=== PATIENT | male | born 1975 | race Hispanic/Latino ===

== ENCOUNTER 2017-10-27 23:43 | Observation (INO) | payer MEDICAID ==
[2017-10-27] MEDS ORDERED: PANTOPRAZOLE 40 MG 10ML VIAL IV STA (23:56)
[2017-10-28 00:10] LABS: BASOPHILS # (AUTO) 0.1 (0.0-0.1); EOSINOPHILS # (AUTO) 0.6 (0.0-0.4); EOSINOPHILS % 9.6 % (0.0-6.0); HEMATOCRIT 29.9 % (38.2-49.6); HEMOGLOBIN 9.4 g/dL (14.0-18.0); LYMPHOCYTES % 16.4 % (18.0-39.1); MEAN CORPUSCULAR HEMOGLOBIN 30.4 pg (28-32); MEAN CORPUSCULAR HGB CONC 31.4 g/dL (31-35); MEAN CORPUSCULAR VOLUME 96.8 fL (81-99); MONOCYTES # (AUTO) 0.4 (0.2-0.8); MONOCYTES % 7.1 % (4.4-11.3); NEUTROPHILS % 65.7 % (38.7-80.0); PLATELET COUNT 226 x10e3/uL (140-360); RED BLOOD COUNT 3.09 x10e6/uL (4.3-5.7); RED CELL DISTRIBUTION WIDTH 14.9 % (11.7-14.4)
[2017-10-28 00:20] LABS: AMYLASE 45 U/L (25-125); LIPASE 6 U/L (8-78)
[2017-10-28 00:25] LABS: ALBUMIN 2.7 g/dL (3.5-5.0); ALBUMIN/GLOBULIN RATIO 0.4 (0.8-2.0); ANION GAP 17.3 mmol/L (8-16); CALCIUM 8.4 mg/dL (8.4-10.2); CREATININE, SERUM 3.66 mg/dL (0.72-1.25); POTASSIUM 5.3 mmol/L (3.5-5.1)
[2017-10-28] MEDS ORDERED: SODIUM BICARBONATE 8.4% INJ 50 ML SYR IV STA (00:30)
[2017-10-28] MEDS ORDERED: INSULIN REGULAR, HUMAN 100 UNIT/1 ML 3ML VIAL IV ONE (00:30)
[2017-10-28] MEDS ORDERED: DEXTROSE 50% SYRINGE 50 ML IV STA (00:30)
[2017-10-28 00:31] LABS: TROPONIN I 0.04 ng/mL (0-0.300)
--- NOTE | 2017-10-28 02:13 | Diagnostic Imaging Report ---
EXAMINATION: CHEST SINGLE (PORTABLE) INDICATION: Shortness of breath COMPARISON: None FINDINGS: TUBES and LINES: Right IJ dual-lumen dialysis catheter with tip overlying the atrial caval junction LUNGS: Lungs are not well inflated. There are bibasilar atelectasis. There is perihilar interstitial opacities, consistent with interstitial edema. PLEURA: Small bilateral pleural effusions HEART AND MEDIASTINUM: Cardiac size is moderately enlarged. BONES AND SOFT TISSUES: No acute osseous lesion. Soft tissues are unremarkable. UPPER ABDOMEN: No free air under the diaphragm. IMPRESSION: 1. Findings are consistent with fluid overload and small bilateral pleural effusions. 2. Enlargement of the cardiac silhouette may be related to cardiomegaly or pericardial effusion. Signed by: Dr. Sd Snell M.D. on 10/28/2017 2:09 AM
[2017-10-28] MEDS ORDERED: HYDRALAZINE HCL 20 MG/ML VIAL IV PRN (03:00)
[2017-10-28] MEDS ORDERED: DEXTROSE 50% SYRINGE 50 ML IV PRN (03:00)
[2017-10-28] MEDS: MORPHINE SULFATE 2 MG/ML SYR IV PRN ×4 (03:22→20:59)
[2017-10-28] MEDS: ONDANSETRON HCL INJ 2 MG/ML VIAL IV PRN ×3 (03:22→12:50)
[2017-10-28 04:00] VITALS: BP 146/88
[2017-10-28] MEDS: INSULIN REGULAR, HUMAN 100 UNIT/1 ML 3ML VIAL SQ SCH ×4 (07:30→20:32)
[2017-10-28 08:26] VITALS: BP 146/88
[2017-10-28] MEDS: PANTOPRAZOLE 40 MG 10ML VIAL IV SCH (08:31)
[2017-10-28] MEDS ORDERED: DIATRIZOATE MEGL/DIATRIZOA SOD 30 ML BTL PO ONE (09:53)
--- NOTE | 2017-10-28 10:14 | History and Physical ---
CHIEF COMPLAINT: Shortness of breath and abdominal pain. HPI: Mr. Hernandez is a 42-year-old male presented to the emergency room with worsening shortness of breath and abdominal pain that started yesterday. He was at [facility] up until yesterday. Patient is a newly diagnosed end-stage renal disease, and since he does not have insurance, they were having a difficult time finding him a chair for dialysis. They found him a chair for dialysis. However, he started having abdominal pain so he decided to come to the emergency room. He has a history of diabetes, bilateral above-knee amputation and has sacral decubitus ulcers. He denies any chest pain, nausea, vomiting, diarrhea, or focal weakness. REVIEW OF SYSTEMS GENERAL: Denies any fever or chills. HEENT: Denies any head trauma or head injury. ENT: Denies any earache, nosebleeds, or throat pain. CV: Denies any chest pain. RESPIRATORY: Patient has shortness of breath. GI: Nausea, vomiting. The rest of the review of systems are negative except as in HPI. PAST MEDICAL HISTORY: End-stage renal disease, diabetes, below knee amputation status. FAMILY AND SOCIAL HISTORY: Does not smoke. Does not drink. Lives with his daughter. PHYSICAL EXAMINATION VITAL SIGNS: Temperature 97.3, pulse 63, blood pressure 146/88, respiratory rate 18, O2 sat 99% on room air. SKIN: Warm and dry. GENERAL: Young male with abdominal distress. He is awake, alert and following commands. HEENT: Head is atraumatic and normocephalic. Pupils are reactive. NECK: Supple. No JVD. He has a decubitus ulcer on the head as well. CHEST: Crackles bilaterally. HEART: S1 and S2 audible. ABDOMEN: Soft, nontender and nondistended. Bowel sounds are audible. EXTREMITIES: Bilateral AKA. Chest x-ray showing poor respiratory effort and bilateral congestion. LABS: White count of 6000, hemoglobin 9.4 and platelets 226,000. Chemistry: Sodium 131, potassium 5.3, chloride 94, BUN 28, creatinine 3.66, alk phos 375. AST and ALT is normal. BNP 3381. ASSESSMENT AND PLAN: Mr. Hernandez is a 42-year-old male with end-stage renal disease, newly diagnosed, history of diabetes, multiple decubitus ulcers, bilateral above-knee amputation. CURRENT PROBLEMS 1. Fluid overload. 2. Hyperkalemia. 3. End-stage renal disease. 4. Diabetes mellitus. 5. Bilateral above-knee amputation status. 6. Poor social support. 7. Decubitus ulcers. PLAN 1. Nephrology consult. Patient will need hemodialysis. 2. CT of the abdomen and pelvis. Patient is having abdominal pain. Etiology not very clear. 3. Increased CK-MB and BNP. Will follow cardiac enzymes. Consider consulting cardiology. Job#: [id number] [place]
[2017-10-28 12:30] VITALS: BP 164/97
--- NOTE | 2017-10-28 12:48 | Diagnostic Imaging Report ---
EXAM: CT Abdomen and Pelvis WITHOUT contrast INDICATION: Abdominal pain. End-stage renal disease and dialysis. COMPARISON: None. TECHNIQUE: Abdomen and pelvis were scanned utilizing a multidetector helical scanner from the lung base to the pubic symphysis without administration of IV contrast. Absence of intravenous contrast decreases sensitivity for detection of focal lesions and vascular pathology. Coronal and sagittal reformations were obtained. Routine protocol was performed. IV CONTRAST: None. ORAL CONTRAST: Gastrografin and water mixture. RADIATION DOSE: Total DLP: 754.17 mGy*cm Estimated effective dose: (DLP x 0.015 x size factor) mSv COMPLICATIONS: None FINDINGS: LINES and TUBES: Distal portion of the right venous catheter is located in the high right atrium. LOWER THORAX: The heart is moderate to markedly enlarged. Multivessel coronary artery calcifications. Small pericardial effusion. Complex right pleural effusion with either pleural thickening or layering the biliary as demonstrated on axial image 11 series 2. Small left pleural effusion. Bilateral lower lobe atelectasis. Mild prominence of the pulmonary vasculature. HEPATOBILIARY: The liver is enlarged measuring 19.8 cm in length. No focal hepatic lesions. No biliary ductal dilation. GALLBLADDER: No radio-opaque stones or sludge. No wall thickening. SPLEEN: No splenomegaly. PANCREAS: No focal masses or ductal dilatation. ADRENALS: No adrenal nodules KIDNEYS/URETERS: No hydronephrosis. No cystic or solid mass lesions. No stones. GI TRACT: No abnormal distention, wall thickening, or evidence of bowel obstruction. Moderate volume of stool within the colon. Appendix is not identified. PELVIC ORGANS/BLADDER: Unremarkable. LYMPH NODES: No lymphadenopathy. VESSELS: Extensive atherosclerotic calcification of mesenteric vessels. Moderate calcification of the splenic artery and branches. Atherosclerotic calcifications of the aorta and iliac arteries without aneurysmal dilatation. PERITONEUM / RETROPERITONEUM: No free air or fluid. BONES: Unremarkable. SOFT TISSUES: Mild anasarca. Small fat-containing umbilical hernia, with mild hyperenhancement of the hernia sac. IMPRESSION: 1. Hepatomegaly. 2. Extensive atherosclerotic disease. Further evaluation of vasculature Limited lack of contrast. 3. Bilateral pleural effusions, complex on the right, associated with bilateral lower lobe compressive atelectasis. 4. Moderate to marked cardiomegaly and small pericardial effusion. Signed by: Dr. Raysa Earl M.D. on 10/28/2017 12:44 PM
[2017-10-28 15:39] VITALS: BP 159/84
--- NOTE | 2017-10-28 15:49 | Consultation ---
DATE OF CONSULTATION: October 28, 2017 NEPHROLOGY CONSULT REASON FOR THE CONSULT: End-stage renal disease. HISTORY OF PRESENT ILLNESS: This is a 42-year-old male who is very known to our service as we manage his dialysis. He has been on compression dialysis until this admission in [place] where we were able to hook him up at [facility] every Thursday//Thursday. He was just discharged from [place] yesterday, and he was supposed to go for dialysis tomorrow. He came complaining of some abdominal pain along with some nausea and decreased p.o. intake, the same complaint that happened at [place] for which extensive workup has been undergoing and the CAT scan was done already. The patient has history of previously bad CHF along with a pericardial effusion in the past status post pericardiocentesis. Today he is resting. He tolerated some diet, but he still has some nausea. We are consulted to manage dialysis on inpatient. He has very bad vascular disease with bilateral amputations above the knee and along with ischemic fingers, and he has diabetes and sacral decubitus ulcer. He is afebrile. REVIEW OF SYSTEMS: Negative otherwise. PAST MEDICAL HISTORY: As mentioned above. FAMILY HISTORY: Hypertension, diabetes. SOCIAL HISTORY: Denies smoking, alcohol or IV drug abuse. ALLERGIES: NEGATIVE PER RECORDS. VITAL SIGNS: For today blood pressure 164/97, heart rate 64, temperature 96.8. PHYSICAL EXAMINATION GENERAL APPEARANCE: No acute distress, awake, alert x3. HEAD, EARS, EYES, NECK: No lymphadenopathy. HEART: Regular rate and rhythm. LUNGS: Decreased breath sounds at the bases. ABDOMEN: Soft, nontender. EXTREMITIES: No edema. His white count is 6, hemoglobin is 9.4. His potassium yesterday was 5.3. Overnight his BNP 3381, CK-MB is 9.3, his troponin is 0.04. ASSESSMENT AND PLAN 1. End-stage renal disease. Patient has been on compression dialysis for a few years now. He is set up at [facility] every Thursday//Thursday for third shift. Educated the patient about compliance with outpatient dialysis rather than coming back to the hospital. This time we are going to dialyze short session today given potassium 5.3 and shortness of breath. However, he has to resume dialysis tomorrow. 2. Electrolytes. Low potassium diet and bath. 3. Anemia of chronic disease. Add Epogen if patient stays in the hospital. 4. Congestive heart failure and shortness of breath. Patient has history of pericardial effusion status post drainage, and now he has small pericardial effusion and he has some bilateral effusions. Challenge UF as tolerated. Dr. Martínez and Dr. Sharma are following from cardiac and pulmonary standpoint. Follow up their recommendations. 5. Diabetes. Monitor blood sugar. 6. Peripheral vascular disease with the second finger in the left hand ischemic and discoloration. He has above-knee amputation bilateral. Thank you for the consult. The patient basically is coming after being discharged by 1 day from another hospital with extensive workup for CAT scan of his abdomen given his nausea and along with abdominal pain that was investigated and ruled out for major diseases. He was able to tolerate the diet. I am going to dialyze the patient short session today, and then if he stays here we will dialyze again tomorrow and send him out on TTS schedule. Recommend get records from [place] rather than doing further workup and expose the patient for further imaging studies. Job#: [id number] [place]
[2017-10-28 19:00] VITALS: BP 161/89
[2017-10-28] MEDS ORDERED: HEPARIN SOD (PORCINE) 1000 UNIT/ML SDV IV PRN (19:30)
[2017-10-28] MEDS ORDERED: SODIUM CHLORIDE 0.9% 1000ML 2,000 ML IV PRN (19:30)
[2017-10-28] MEDS ORDERED: ALBUMIN HUMAN 12.5GM / 50ML IV PRN (19:30)
[2017-10-28] MEDS ORDERED: SODIUM CHLORIDE 0.9% 250ML 500 ML IV PRN (19:30)
[2017-10-29] VITALS: BP 192/88
[2017-10-29] MEDS: MORPHINE SULFATE 2 MG/ML SYR IV PRN ×3 (00:48→09:39)
[2017-10-29 04:00] VITALS: BP 161/87
[2017-10-29 07:25] LABS: BASOPHILS # (AUTO) 0.1 (0.0-0.1); BASOPHILS % 1.1 % (0.0-1.0); EOSINOPHILS # (AUTO) 0.7 (0.0-0.4); EOSINOPHILS % 11.3 % (0.0-6.0); HEMOGLOBIN 8.3 g/dL (14.0-18.0); LYMPHOCYTES % 16.6 % (18.0-39.1); MEAN CORPUSCULAR HEMOGLOBIN 30.9 pg (28-32); MEAN CORPUSCULAR HGB CONC 31.9 g/dL (31-35); MEAN CORPUSCULAR VOLUME 96.7 fL (81-99); MONOCYTES # (AUTO) 0.6 (0.2-0.8); MONOCYTES % 9.4 % (4.4-11.3); NEUTROPHILS # (AUTO) 3.8 (2.1-6.9); NEUTROPHILS % 61.3 % (38.7-80.0); PLATELET COUNT 208 x10e3/uL (140-360); RED BLOOD COUNT 2.69 x10e6/uL (4.3-5.7); RED CELL DISTRIBUTION WIDTH 15.2 % (11.7-14.4)
[2017-10-29] MEDS: INSULIN REGULAR, HUMAN 100 UNIT/1 ML 3ML VIAL SQ SCH ×3 (07:30→16:07)
[2017-10-29 07:50] LABS: ALBUMIN 2.4 g/dL (3.5-5.0); ALBUMIN/GLOBULIN RATIO 0.5 (0.8-2.0); CALCIUM 8.4 mg/dL (8.4-10.2); CREATININE, SERUM 3.08 mg/dL (0.72-1.25)
[2017-10-29 08:28] VITALS: BP 169/74
[2017-10-29] MEDS: PANTOPRAZOLE 40 MG 10ML VIAL IV SCH (09:39)
[2017-10-29] MEDS: ONDANSETRON HCL INJ 2 MG/ML VIAL IV PRN (09:39)
[2017-10-29] MEDS ORDERED: SOD POLYSTYRENE SULFONATE SUSP 15 GM/60 ML BTL PO STA (09:58)
--- NOTE | 2017-10-29 10:29 | Discharge Summary ---
FINAL DIAGNOSES 1. End-stage renal disease. 2. Bilateral upper knee amputation status. 3. Decubitus ulcers. 4. Hyperkalemia with fluid overload. Mr. Hernandez is a 42-year-old male who presented with fluid overload. Patient has been set up for hemodialysis as an outpatient. He was recently admitted at [facility]. During the hospital stay, nephrology was consulted. The patient underwent hemodialysis. He is doing much better now. Denying any complaints of chest pain, nausea, vomiting. CT of the abdomen was done, which was negative. Patient can be discharged home if okay with consultants. Discharge medication list reviewed. MANUEL HEART MD Job#: [id number] [place]
[2017-10-29 12:39] VITALS: BP 164/99
[2017-10-29 16:13] VITALS: BP 163/90
== END 2017-10-29 17:41 | disposition home or self-care (01) ==
LOC: ER 23:43 → IMCU 10-28 03:22
PROVIDERS: ADMIT Internal Medicine; ATTEND Internal Medicine
DX: E11.22 Type 2 diabetes mellitus with diabetic chronic kidney disease (principal); I13.2 Hypertensive heart and chronic kidney disease with heart failure and with stage 5 chronic kidney disease, or end stage renal disease; N18.6 End stage renal disease; D63.1 Anemia in chronic kidney disease; I50.9 Heart failure, unspecified; E87.5 Hyperkalemia; E87.70 Fluid overload, unspecified; L89.159 Pressure ulcer of sacral region, unspecified stage; I73.89 Other specified peripheral vascular diseases; I31.3 Pericardial effusion (noninflammatory); K29.50 Unspecified chronic gastritis without bleeding; I25.10 Atherosclerotic heart disease of native coronary artery without angina pectoris; I27.9 Pulmonary heart disease, unspecified; Z99.2 Dependence on renal dialysis; Z89.612 Acquired absence of left leg above knee; Z89.611 Acquired absence of right leg above knee; Z83.3 Family history of diabetes mellitus; Z82.49 Family history of ischemic heart disease and other diseases of the circulatory system
CPT/HCPCS: 36415 ×2; 71010; 74176; 80053 ×2; 82150; 82550; 82553; 82948 ×2; 83690; 83880; 84484; 85025 ×2; 86705; 86707; 87340; 93005; 99284; G0378 ×2; J1644; J2270 ×2; J2405 ×2; J7799; 90962

== ENCOUNTER 2017-11-16 07:16 | Emergency (ER) | payer SELFPAY ==
[~2017-11-16] VITALS: Ht 121.9 cm; Wt 56.7 kg
[2017-11-16] MEDS ORDERED: HYDROMORPHONE 1MG/1ML INJ IV STA (07:44)
[2017-11-16] MEDS ORDERED: ONDANSETRON HCL INJ 2 MG/ML VIAL IV STA (07:44)
[2017-11-16] MEDS ORDERED: DIATRIZOATE MEGL/DIATRIZOA SOD 30 ML BTL PO ONE (08:11)
[2017-11-16 08:24] LABS: BASOPHILS # (AUTO) 0.1 (0.0-0.1); BASOPHILS % 1.4 % (0.0-1.0); EOSINOPHILS # (AUTO) 0.8 (0.0-0.4); EOSINOPHILS % 10.7 % (0.0-6.0); HEMATOCRIT 27.8 % (38.2-49.6); HEMOGLOBIN 8.8 g/dL (14.0-18.0); LYMPHOCYTES # (AUTO) 1.6 (1.0-3.2); LYMPHOCYTES % 20.3 % (18.0-39.1); MEAN CORPUSCULAR HEMOGLOBIN 30.4 pg (28-32); MEAN CORPUSCULAR HGB CONC 31.7 g/dL (31-35); MEAN CORPUSCULAR VOLUME 96.2 fL (81-99); MONOCYTES # (AUTO) 0.9 (0.2-0.8); MONOCYTES % 11.5 % (4.4-11.3); NEUTROPHILS # (AUTO) 4.4 (2.1-6.9); NEUTROPHILS % 55.8 % (38.7-80.0); PLATELET COUNT 333 x10e3/uL (140-360); RED BLOOD COUNT 2.89 x10e6/uL (4.3-5.7)
--- NOTE | 2017-11-16 08:24 | Diagnostic Imaging Report ---
PROCEDURE: A single AP view of the chest. COMPARISON: Patients [facility], DX, CHEST SINGLE (PORTABLE), 10/28/2017, 0:49. INDICATIONS: CHEST PAIN, SOB FINDINGS: Lines/tubes: Right IJ tunneled hemodialysis catheter. Lungs: Unchanged right basilar atelectasis versus pneumonia. Mild pulmonary vascular congestion. Pleura: There is no pleural effusion or pneumothorax. Heart and mediastinum: The heart and the mediastinum are unremarkable. Bones: No acute bony abnormality. Bone infarct involving the right humerus. IMPRESSION: Unchanged right basilar opacity; atelectasis vs pneumonia. Bruno Warren D.O. Dictated by: Bruno Warren D.O. on 11/16/2017 at 8:31 Electronically approved by: Bruno Warren D.O. on 11/16/2017 at 8:31
[2017-11-16 08:36] LABS: INR 0.96; PROTHROMBIN TIME 13.3 seconds (11.9-14.5)
[2017-11-16 08:37] LABS: PARTIAL THROMBOPLASTIN TIME 39.9 seconds (23.8-35.5)
[2017-11-16 08:39] LABS: ALBUMIN 2.7 g/dL (3.5-5.0); ALBUMIN/GLOBULIN RATIO 0.5 (0.8-2.0); ANION GAP 14.7 mmol/L (8-16); CALCIUM 8.8 mg/dL (8.4-10.2); CREATININE, SERUM 3.95 mg/dL (0.72-1.25); POTASSIUM 4.7 mmol/L (3.5-5.1)
[2017-11-16 08:47] LABS: CREATINE KINASE MB 10.9 ng/mL (0.00-5.00); TROPONIN I 0.064 ng/mL (0-0.300)
[2017-11-16] MEDS ORDERED: CLONIDINE HCL 0.1 MG TAB PO ONE ×2 (09:45→10:45)
--- NOTE | 2017-11-16 10:20 | Diagnostic Imaging Report ---
PROCEDURE: CT ABDOMEN AND PELVIS WITHOUT CONTRAST TECHNIQUE: The abdomen and pelvis were scanned utilizing a multidetector helical scanner from the diaphragm to the lesser trochanter without IV contrast material. Gastrografin intermixed with water or GI contrast. Coronal and sagittal multiplanar reformations were obtained. DLP: 326.64 mGy COMPARISON: [facility], CT, CT ABDOMEN/PELVIS WO, 10/28/2017, 11:12. INDICATIONS: ABDOMINAL PAIN FINDINGS: ABSENCE OF INTRAVENOUS CONTRAST DECREASES SENSITIVITY FOR DETECTION OF FOCAL LESIONS AND VASCULAR PATHOLOGY. LOWER THORAX: Small bilateral pleural effusions. Left basilar atelectasis. Consolidation involving the right lower lobe. Small pericardial effusion. The heart is enlarged. HEPATOBILIARY: No focal hepatic lesions. The liver is enlarged. No biliary ductal dilatation. SPLEEN: No splenomegaly. PANCREAS: No focal masses or ductal dilatation. ADRENALS: No adrenal nodules. KIDNEYS/URETERS: No hydronephrosis, stones, or solid mass lesions. PELVIC ORGANS/BLADDER: Unremarkable. PERITONEUM / RETROPERITONEUM: There is a mild amount of abdominal and pelvic ascites. LYMPH NODES: No lymphadenopathy. VESSELS: Diffuse arterial vascular calcification. GI TRACT: No distention or wall thickening. BONES AND SOFT TISSUES: Bony erosion and soft tissue air involving the left ischium likely secondary to osteomyelitis and pressure ulcer. IMPRESSION: 1. Left ischial bony erosion with associated soft tissue air and ulcer most compatible with osteomyelitis. 2. Bilateral pleural effusions, pericardial effusion and right lower lobe consolidation. 3. There is a mild amount of abdominal and pelvic ascites. Bruno Warren D.O. Dictated by: Bruno Warren D.O. on 11/16/2017 at 10:28 Electronically approved by: Bruno Warren D.O. on 11/16/2017 at 10:28
[2017-11-16 13:10] VITALS: BP 182/107
[2017-11-17] MEDS ORDERED: NITROGLYCERIN 0.2 MG/HR PATCH TOP SCH (09:00)
== END 2017-11-16 13:20 | disposition home or self-care (01) ==
LOC: ER 07:16
DX: R10.84 Generalized abdominal pain (principal); I10 Essential (primary) hypertension; N28.9 Disorder of kidney and ureter, unspecified
CPT/HCPCS: 36415; 71010; 74176; 80053; 82550; 82553; 83880; 84484; 85025; 85610; 85730; 93005; 96374; 99284; J1170; J2405

== ENCOUNTER 2017-12-10 22:11 | Emergency (ER) | payer MEDICAID ==
[~2017-12-10] VITALS: Ht 121.9 cm; Wt 56.7 kg
[2017-12-10] MEDS ORDERED: HYDRALAZINE HCL 20 MG/ML VIAL IV STA (22:49)
[2017-12-10] MEDS ORDERED: DIATRIZOATE MEGL/DIATRIZOA SOD 30 ML BTL PO ONE (22:55)
[2017-12-10 23:16] LABS: BASOPHILS % 0.5 % (0.0-1.0); EOSINOPHILS # (AUTO) 0.1 (0.0-0.4); EOSINOPHILS % 2.1 % (0.0-6.0); HEMOGLOBIN 9.3 g/dL (14.0-18.0); LYMPHOCYTES # (AUTO) 0.9 (1.0-3.2); MEAN CORPUSCULAR HEMOGLOBIN 30.9 pg (28-32); MEAN CORPUSCULAR HGB CONC 32.1 g/dL (31-35); MEAN CORPUSCULAR VOLUME 96.3 fL (81-99); MONOCYTES # (AUTO) 0.7 (0.2-0.8); MONOCYTES % 11.5 % (4.4-11.3); NEUTROPHILS # (AUTO) 4.6 (2.1-6.9); NEUTROPHILS % 71.7 % (38.7-80.0); PLATELET COUNT 287 x10e3/uL (140-360); RED BLOOD COUNT 3.01 x10e6/uL (4.3-5.7); RED CELL DISTRIBUTION WIDTH 16.8 % (11.7-14.4)
[2017-12-10 23:36] LABS: ALBUMIN 2.5 g/dL (3.5-5.0); ALBUMIN/GLOBULIN RATIO 0.5 (0.8-2.0); ALKALINE PHOSPHATASE 228 IU/L (40-150); ANION GAP 14.9 mmol/L (8-16); BLOOD UREA NITROGEN 22 mg/dL (7-26); BUN/CREATININE RATIO 7 (6-25); CALCIUM 7.7 mg/dL (8.4-10.2); CARBON DIOXIDE 26 mmol/L (22-29); CHLORIDE 94 mmol/L (98-107); CREATININE, SERUM 3.27 mg/dL (0.72-1.25); EST GLOMERULAR FILTRATION RATE 21 ML/MIN (60-); GLUCOSE 108 mg/dL (74-118); POTASSIUM 3.9 mmol/L (3.5-5.1); SODIUM 131 mmol/L (136-145)
[2017-12-10 23:44] LABS: TROPONIN I 0.076 ng/mL (0-0.300)
[2017-12-10 23:46] LABS: ALANINE AMINOTRANSFERASE < 6 IU/L (0-55)
--- NOTE | 2017-12-10 23:48 | Diagnostic Imaging Report ---
EXAM: CHEST SINGLE (PORTABLE), AP 1 view DATE: 12/10/2017 10:42 PM Time stamp on exam: 2330 hours INDICATION: Chest pain COMPARISON: AP view of the chest at 0 19/08/2017 FINDINGS: LINES/TUBES: Right internal jugular vein tunneled hemodialysis catheter in stable position. LUNGS: Interstitial edema and right lower lobe consolidation versus atelectasis. PLEURA: Small bilateral pleural effusions. HEART AND MEDIASTINUM: Stable cardiac enlargement. BONES AND SOFT TISSUES: No acute findings. Serpiginous calcification in the right proximal humerus, possibly an old bone infarct. IMPRESSION: Right lower lobe consolidation versus atelectasis. Signed by: Dr. Jo Devlin M.D. on 12/10/2017 11:45 PM
--- NOTE | 2017-12-11 00:23 | Diagnostic Imaging Report ---
EXAM: CT ABDOMEN AND PELVIS without IV CONTRAST DATE: December 10, 2017 Time stamp on Exam: 2321 hours INDICATION: Abdominal pain, shortness of breath COMPARISON: CT of the abdomen and pelvis November 16, 2017 TECHNIQUE: The abdomen and pelvis were scanned using a multidetector helical scanner. Coronal and sagittal reformations were obtained. Routine protocol performed. IV Contrast: None Oral Contrast: Gastrografin CTDIvol has been reviewed. It is below the limits set by the Radiation Protocol Committee (RPC). FINDINGS: LOWER THORAX: Round atelectasis right lung base with associated complex right pleural effusion, no interval change. Atelectasis left lung base with associated trace pleural effusion, no change. Partially visualized cardiomegaly and small pericardial effusion. Partially visualized hemodialysis catheter in the right atrium. LIVER: Hepatomegaly. BILIARY: Normal gallbladder. No ductal dilation. SPLEEN: No masses PANCREAS: Not well visualized ADRENALS: No nodules RIGHT KIDNEY: No nephroureterolithiasis or hydronephrosis. LEFT KIDNEY: No nephroureterolithiasis or hydronephrosis. GI TRACT: No wall thickening or obstruction. Neither a normal nor abnormal appendix is identified. VESSELS: Calcifications of the abdominal aorta and branches without aneurysm. PERITONEUM/RETROPERITONEUM: Mild ascites. 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 LYMPH NODES: No lymphadenopathy REPRODUCTIVE ORGANS: Normal BLADDER: Normal SOFT TISSUES: Anasarca BONES: No suspicious bone lesions. IMPRESSION: No significant interval change from prior exam. No bowel obstruction. Cardiomegaly, pericardial effusion, bibasilar atelectasis and small bilateral pleural effusions, small volume ascites and anasarca. Signed by: Dr. Jo Devlin M.D. on 12/11/2017 12:20 AM
[2017-12-11] MEDS ORDERED: ONDANSETRON HCL 4 MG ORAL DISINTEGRATING TAB PO ONE (01:00)
[2017-12-11] MEDS ORDERED: HYDROCODONE/APAP 5MG-325MG TAB PO ONE (01:00)
== END 2017-12-11 01:13 | disposition home or self-care (01) ==
LOC: ER 22:11
DX: R10.33 Periumbilical pain (principal); R10.84 Generalized abdominal pain; R11.2 Nausea with vomiting, unspecified; I12.0 Hypertensive chronic kidney disease with stage 5 chronic kidney disease or end stage renal disease; N18.6 End stage renal disease; Z99.2 Dependence on renal dialysis; Z89.612 Acquired absence of left leg above knee; Z89.611 Acquired absence of right leg above knee
CPT/HCPCS: 36415; 71010; 74176; 80053; 84484; 85025; 93005; 96374; 99284; J0360

== ENCOUNTER 2018-04-01 12:48 | Inpatient (IN) | payer MEDICAID ==
[~2018-04-01] VITALS: Ht 121.9 cm; Wt 49.5 kg
--- OUTSIDE RECORDS SUMMARY | 2018-04-01 12:51 | XMS REPORT ---
Author Author [facility] Address Unknown Phone Unavailable Care Team Providers Care Importer Exporter Name Role Phone OMAR KAUR Unavailable Unavailable CLAYTON HEIN Unavailable Unavailable MANUEL HEART Unavailable Unavailable Problems This patient has no known problems. Allergies, Adverse Reactions, Alerts This patient has no known allergies or adverse reactions. Medications This patient has no known medications. Encounters Start Date/Time End Date/Time Encounter Type Admission Type Attending [facility] Care Department Encounter ID 2017-11-11 20:30:31 Inpatient [facility] [id number] 2017-03-17 19:01:37 Inpatient [facility] [id number] 2017-03-17 16:10:42 Inpatient [facility] [id number] 2017-03-16 17:40:21 Inpatient [facility] [id number] 2017-03-15 22:20:10 Inpatient [facility] [id number] 2017-03-15 21:21:19 Inpatient [facility] [id number] 2017-03-14 11:21:00 Inpatient [facility] [id number] 2017-03-12 16:24:14 Inpatient [facility] [id number] 2017-03-11 00:00:00 Inpatient [facility] [id number] 2017-03-10 15:30:15 Inpatient [facility] [id number] 2017-03-10 03:45:50 Inpatient [facility] [id number] 2017-03-09 18:14:44 Inpatient [facility] [id number] 2017-03-08 11:22:56 Inpatient [facility] [id number] 2017-03-04 07:59:59 Inpatient [facility] [id number] 2017-02-22 00:00:00 Inpatient [facility] [id number] 2017-02-22 00:00:00 Inpatient [facility] [id number] 2017-02-20 08:12:51 Inpatient [facility] [id number] 2017-02-09 20:08:38 Inpatient [facility] [id number] 2017-02-09 03:25:39 Inpatient [facility] [id number] 2017-02-08 14:24:05 Inpatient [facility] [id number] 2017-02-08 12:15:45 Inpatient [facility] [id number] 2017-02-05 07:33:18 Inpatient [facility] [id number] 2017-02-04 15:01:13 Inpatient [facility] [id number] 2017-02-04 12:12:11 Inpatient [facility] [id number] 2017-02-03 06:49:24 Inpatient [facility] [id number] 2017-01-31 00:00:00 Inpatient [facility] [id number] 2017-01-31 00:00:00 Inpatient [facility] [id number] 2017-01-30 06:51:06 Inpatient [facility] [id number] 2017-01-29 20:32:22 Inpatient [facility] [id number] 2017-01-29 15:01:10 Inpatient [facility] [id number] 2017-01-26 00:00:00 Inpatient [facility] [id number] 2017-01-26 00:00:00 Inpatient [facility] [id number] 2017-01-22 00:00:00 Inpatient [facility] [id number] 2017-01-22 00:00:00 Inpatient [facility] [id number] 2017-01-19 17:08:28 Inpatient [facility] [id number] 2017-01-19 12:24:48 Inpatient [facility] [id number] 2017-01-19 11:58:02 Inpatient [facility] [id number] 2017-01-19 01:08:47 Inpatient [facility] [id number] 2017-01-19 00:00:00 Inpatient [facility] [id number] 2017-01-16 19:07:16 Inpatient [facility] [id number] 2017-01-16 10:49:19 Inpatient [facility] [id number] 2017-01-14 14:43:35 Inpatient [facility] [id number] 2017-01-14 14:12:45 Inpatient [facility] [id number] 2017-01-12 00:08:19 Inpatient [facility] [id number] 2017-01-12 00:00:00 Inpatient [facility] [id number] 2017-01-11 12:06:21 Inpatient [facility] [id number] 2017-01-11 00:00:00 Inpatient [facility] [id number] 2017-01-09 03:07:17 Inpatient [facility] [id number] 2017-01-09 01:01:42 Inpatient [facility] [id number] 2017-01-09 00:00:00 Inpatient [facility] [id number] 2017-01-09 00:00:00 Inpatient [facility] [id number] 2016-06-18 06:17:14 Inpatient [facility] [id number] 2018-02-04 00:00:00 2018-02-04 00:00:00 Outpatient [facility] [id number] 2018-01-21 15:02:00 2018-01-21 15:02:00 Outpatient [facility] [id number] 2018-01-19 16:39:14 2018-01-19 16:39:14 Emergency [facility] [id number] 2018-01-19 10:37:39 2018-01-19 10:37:39 Outpatient [facility] [id number] 2018-01-19 00:00:00 2018-01-19 00:00:00 Emergency [facility] [id number] 2017-12-13 22:29:48 2017-12-13 22:29:48 Emergency [facility] [id number] 2017-12-13 17:57:20 2017-12-13 17:57:20 Emergency [facility] [id number] 2017-12-01 00:00:00 2017-12-01 00:00:00 Outpatient [facility] [id number] 2017-11-17 00:00:00 2017-11-17 00:00:00 Outpatient [facility] [id number] 2017-11-12 12:46:26 2017-11-12 00:00:00 Inpatient [facility] [id number] 2017-11-11 00:15:20 2017-11-11 00:15:20 Emergency [facility] [id number] 2017-11-10 21:07:21 2017-11-10 21:07:21 Inpatient [facility] [id number] 2017-10-12 05:24:00 2017-10-12 05:24:00 Emergency [facility] [id number] 2017-09-07 06:09:56 2017-09-07 06:09:56 Emergency [facility] [id number] 2017-07-18 09:38:59 2017-07-18 09:38:59 Emergency [facility] [id number] 2017-07-18 05:09:25 2017-07-18 05:09:25 Emergency [facility] [id number] 2017-07-05 02:43:24 2017-07-05 02:43:24 Emergency [facility] [id number] 2017-07-02 06:25:51 2017-07-02 06:25:51 Emergency [facility] [id number] 2017-07-02 01:34:48 2017-07-02 01:34:48 Emergency [facility] [id number] 2017-06-26 07:01:08 2017-06-26 07:01:08 Emergency [facility] [id number] 2017-06-15 06:37:58 2017-06-15 06:37:58 Emergency [facility] [id number] 2017-06-11 00:00:00 2017-06-11 00:00:00 Outpatient [facility] [id number] 2017-06-05 00:00:00 2017-06-05 00:00:00 Outpatient [facility] [id number] 2017-06-02 11:51:42 2017-06-02 11:51:42 Emergency [facility] [id number] 2017-06-02 06:43:59 2017-06-02 06:43:59 Emergency [facility] [id number] 2017-05-27 00:00:00 2017-05-27 00:00:00 Outpatient [facility] [id number] 2017-05-25 21:03:35 2017-05-25 21:03:35 Outpatient [facility] [id number] 2017-05-25 12:12:10 2017-05-25 12:12:10 Emergency [facility] [id number] 2017-05-25 09:48:52 2017-05-25 09:48:52 Outpatient [facility] [id number] 2017-05-18 00:00:00 2017-05-18 00:00:00 Outpatient [facility] [id number] 2017-05-12 21:17:00 2017-05-12 21:17:00 Emergency [facility] [id number] 2017-05-01 07:26:45 2017-05-01 07:26:45 Emergency [facility] [id number] 2017-05-01 00:00:00 2017-05-01 00:00:00 Outpatient [facility] [id number] 2017-04-29 07:04:24 2017-04-29 07:04:24 Emergency [facility] [id number] 2017-04-17 07:07:59 2017-04-17 07:07:59 Emergency [facility] [id number] 2017-04-14 06:41:43 2017-04-14 06:41:43 Emergency [facility] [id number] 2017-04-11 07:05:06 2017-04-11 07:05:06 Emergency [facility] [id number] 2017-01-08 23:52:04 2017-01-08 23:52:04 Emergency [facility] [id number] 2016-12-20 08:32:44 2016-12-20 08:32:44 Emergency [facility] [id number] 2016-12-03 09:29:21 2016-12-03 09:29:21 Emergency [facility] [id number] 2016-11-26 07:20:04 2016-11-26 07:20:04 Emergency [facility] [id number] 2016-11-15 08:24:34 2016-11-15 08:24:34 Emergency [facility] [id number] 2016-11-10 07:59:39 2016-11-10 07:59:39 Emergency [facility] [id number] 2016-11-06 10:19:59 2016-11-06 10:19:59 Emergency [facility] [id number] 2016-10-30 07:34:06 2016-10-30 07:34:06 Emergency [facility] [id number] Results Test Description Test Time Test Comments Text Results Atomic Results Result Comments CHEST SINGLE (PORTABLE) [place] [address] Patient Name: TRINIDAD ADAIR MR #: [id number] : 1975 Age/Sex: 42/M Req #: [id number] Adm Physician: Ordered by: OMAR KAUR MD Report #: [id number] Location: ER Room/Bed: ____ Procedure: [id number] DX/CHEST SINGLE (PORTABLE) Exam Date: 12/10/17 Exam Time: 2330 REPORT STATUS: Signed EXAM: CHEST SINGLE (PORTABLE), AP 1 view DATE: 12/10/2017 10:42 PM Time stamp on exam: 2330 hours INDICATION: Chest pain COMPARISON: AP view of the chest at 0 19/08/2017 FINDINGS: LINES/TUBES: Right internal jugular vein tunneled hemodialysis catheter in stable position. LUNGS: Interstitial edema and right lower lobe consolidation versus atelectasis. PLEURA: Small bilateral pleural effusions. HEART AND MEDIASTINUM: Stable cardiac enlargement. BONES AND SOFT TISSUES: No acute findings. Serpiginous calcification in the right proximal humerus, possibly an old bone infarct. IMPRESSION: Right lower lobe consolidation versus atelectasis. Signed by: Dr. Pro Devlin M.D. on 12/10/2017 11:45 PM Dictated By : PRO DEVLIN MD 44 Transcribed By: CECI on 12/10/17 2345 COPY TO: OMAR KAUR MD CT ABDOMEN/PELVIS WO [place] [address] Patient Name: TRINIDAD ADAIR MR #: [id number] : 1975 Age/Sex: 42/M Req #: [id number] Adm Physician: Ordered by: OMAR KAUR MD Report #: [id number] Location: ER Room/Bed: Procedure: [id number] CT/CT ABDOMEN/PELVIS WO Exam Date: 12/10/17 Exam Time: 2319 REPORT STATUS: Signed EXAM: CT ABDOMEN AND PELVIS without IV CONTRAST DATE: December 10, 2017 Time stamp on Exam: 2321 hours INDICATION: Abdominal pain, shortness of breath COMPARISON: CT of the abdomen and pelvis November 16, 2017 TECHNIQUE: The abdomen and pelvis were scanned using a multidetector helical scanner. Coronal and sagittal reformations were obtained. Routine protocol performed. IV Contrast: None Oral Contrast: Gastrografin CTDIvol has been reviewed. It is below the limits set by the Radiation Protocol Committee (RPC). FINDINGS: LOWER THORAX: Round atelectasis right lung base with associated complex right pleural effusion, no interval change. Atelectasis left lung base with associated trace pleural effusion, no change. Partially visualized cardiomegaly and small pericardial effusion. Partially visualized hemodialysis catheter in the right atrium. LIVER: Hepatomegaly. BILIARY: Normal gallbladder. No ductal dilation. SPLEEN: No masses PANCREAS: Not well visualized ADRENALS: No nodules RIGHT KIDNEY: No nephroureterolithiasis or hydronephrosis. LEFT KIDNEY: No nephroureterolithiasis or hydronephrosis. GI TRACT: No wall thickening or obstruction. Neither a normal nor abnormal appendix is identified. VESSELS: Calcifications of the abdominal aorta and branches without aneurysm. PERITONEUM/RETROPERITONEUM: Mild ascites. 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 LYMPH NODES: No lymphadenopathy REPRODUCTIVE ORGANS: Normal BLADDER: Normal SOFT TISSUES: Anasarca BONES: No suspicious bone lesions. IMPRESSION: No significant interval change from prior exam. No bowel obstruction. Cardiomegaly, pericardial effusion, bibasilar atelectasis and small bilateral pleural effusions, small volume ascites and anasarca. Signed by: Dr. Pro Devlin M.D. on 12/11 12:20 AM Dictated By: PRO DEVLIN MD Transcribed By: CECI on 12/11/1719 COPY TO: OMAR KAUR MD CHEST SINGLE (PORTABLE) [place] [address] Patient Name: TRINIDAD ADAIR MR #: [id number] : 1975 Age/Sex: 42/M Req #: [id number] Adm Physician: Ordered by: CLAYTON HEIN MD Report #: [id number] Location: ER Room/Bed: Procedure: [id number] DX/CHEST SINGLE (PORTABLE) Exam Date: 11/16/17 Exam Time: 0808 REPORT STATUS: Signed PROCEDURE: A single AP view of the chest. COMPARISON: Patients [facility], , CHEST SINGLE (PORTABLE), 10/28/2017, 0:49. INDICATIONS: CHEST PAIN, SOB FINDINGS: Lines/tubes: Right IJ tunneled hemodialysis catheter. Lungs: Unchanged right basilar atelectasis versus pneumonia. Mild pulmonary vascular congestion. Pleura: There is no pleural effusion or pneumothorax. Heart and mediastinum: The heart and the mediastinum are unremarkable. Bones: No acute bony abnormality. Bone infarct involving the right humerus. IMPRESSION: Unchanged right basilar opacity; atelectasis vs pneumonia. Arias Warren D.O. Dictated by: Arias Warren D.O. on 11/16/2017 at 8:31 Electronically approved by: Arias Warren D.O. on 11/16/2017 at 8:31 Dictated By: ARIAS WARREN DO 08 Transcribed By: NUBIA on 11/16/17 0832 COPY TO: CLAYTON HEIN MD CT ABDOMEN/PELVIS [place] [address] Patient Name: TRINIDAD ADAIR MR #: [id number] : 1975 Age/Sex: 42/M Req #: [id number] Adm Physician: Ordered by: CLAYTON HEIN MD Report #: [id number] Location: ER Room/Bed: Procedure: [id number] CT/CT ABDOMEN/PELVIS WO Exam Date: Exam Time: REPORT STATUS: Signed PROCEDURE: CT ABDOMEN AND PELVIS WITHOUT CONTRAST TECHNIQUE: The abdomen and pelvis were scanned utilizing a multidetector helical scanner from the diaphragm to the lesser trochanter without IV contrast material. Gastrografin intermixed with water or GI contrast. Coronal and sagittal multiplanar reformations were obtained. DLP: 326.64 mGy COMPARISON: [facility], CT, CT ABDOMEN/PELVIS WO, 10/28/2017, 11:12. INDICATIONS: ABDOMINAL PAIN FINDINGS: ABSENCE OF INTRAVENOUS CONTRAST DECREASES SENSITIVITY FOR DETECTION OF FOCAL LESIONS AND VASCULAR PATHOLOGY. LOWER THORAX: Small bilateral pleural effusions. Left basilar atelectasis. Consolidation involving the right lower lobe. Small pericardial effusion. The heart is enlarged. HEPATOBILIARY: No focal hepatic lesions. The liver is enlarged. No biliary ductal dilatation. SPLEEN: No splenomegaly. PANCREAS : No focal masses or ductal dilatation. ADRENALS: No adrenal nodules. KIDNEYS/URETERS: No hydronephrosis, stones, or solid mass lesions. PELVIC ORGANS/BLADDER: Unremarkable. PERITONEUM / RETROPERITONEUM: There is a mild amount of abdominal and pelvic ascites. LYMPH NODES: No lymphadenopathy. VESSELS: Diffuse arterial vascular calcification. GI TRACT: No distention or wall thickening. BONES AND SOFT TISSUES: Bony erosion and soft tissue air involving the left ischium likely secondary to osteomyelitis and pressure ulcer. IMPRESSION: 1. Left ischial bony erosion with associated soft tissue air and ulcer most compatible with osteomyelitis. 2. Bilateral pleural effusions, pericardial effusion and right lower lobe consolidation. 3. There is a mild amount of abdominal and pelvic ascites. Arias Warren D.O. Dictated by: Arias Warren D.O. on 11/16/2017 at 10:28 Electronically approved by: Arias Warren D.O. on 11/16/2017 at 10:28 Dictated By: ARIAS WARREN DO 1028 Transcribed By: NUBIA on 11/16/17 1028 COPY TO: CLAYTON HEIN MD CT ABDOMEN/PELVIS WO [place] [address] Patient Name: TRINIDAD ADAIR MR #: [id number] : 1975 Age/Sex: 42/M Req #: [id number] Adm Physician: MANUEL HEART MD Ordered by : MANUEL HEART MD Report #: [id number] Location: [facility] Room/Bed: [place] [address] Procedure: [id number] CT/CT ABDOMEN/PELVIS WO Exam Date: 10/28/17 Exam Time: 1120 REPORT STATUS: Signed EXAM: CT Abdomen and Pelvis WITHOUT contrast INDICATION: Abdominal pain. End-stage renal disease and dialysis. COMPARISON: None. TECHNIQUE: Abdomen and pelvis were scanned utilizing a multidetector helical scanner from the lung base to the pubic symphysis without administration of IV contrast. Absence of intravenous contrast decreases sensitivity for detection of focal lesions and vascular pathology. Coronal and sagittal reformations were obtained. Routine protocol was performed. IV CONTRAST: None. ORAL CONTRAST: Gastrografin and water mixture. RADIATION DOSE: Total DLP: 754.17 mGy*cm Estimated effective dose: (DLP x 0.015 x size factor) mSv COMPLICATIONS: None FINDINGS: LINES and TUBES: Distal portion of the right venous catheter is located in the high right atrium. LOWER THORAX: The heart is moderate to markedly enlarged. Multivessel coronary artery calcifications. Small pericardial effusion. Complex right pleural effusion with either pleural thickening or layering the biliary as demonstrated on axial image 11 series 2. Small left pleural effusion. Bilateral lower lobe atelectasis. Mild prominence of the pulmonary vasculature. HEPATOBILIARY: The liver is enlarged measuring 19.8 cm in length. No focal hepatic lesions. No biliary ductal dilation. GALLBLADDER: No radio-opaque stones or sludge. No wall thickening. SPLEEN: No splenomegaly. PANCREAS: No focal masses or ductal dilatation. ADRENALS: No adrenal nodules KIDNEYS/URETERS : No hydronephrosis. No cystic or solid mass lesions. No stones. GI TRACT: No abnormal distention, wall thickening, or evidence of bowel obstruction. Moderate volume of stool within the colon. Appendix is not identified. PELVIC ORGANS/BLADDER: Unremarkable. LYMPH NODES: No lymphadenopathy. VESSELS: Extensive atherosclerotic calcification of mesenteric vessels. Moderate calcification of the splenic artery and branches. Atherosclerotic calcifications of the aorta and iliac arteries without aneurysmal dilatation. PERITONEUM / RETROPERITONEUM: No free air or fluid. BONES: Unremarkable. SOFT TISSUES: Mild anasarca. Small fat- containing umbilical hernia, with mild hyperenhancement of the hernia sac. IMPRESSION: 1. Hepatomegaly. 2. Extensive atherosclerotic disease. Further evaluation of vasculature Limited lack of contrast. 3. Bilateral pleural effusions, complex on the right, associated with bilateral lower lobe compressive atelectasis. 4. Moderate to marked cardiomegaly and small pericardial effusion. Signed by: Dr. Raysa Suárez M.D. on 2016 12:44 PM Dictated By: RUBENS SUÁREZ MD, MD 1244 Transcribed By: CECI on 10/28/17 1244 COPY TO: MANUEL HEART MD CHEST [facility] (PORTABLE) [place] [address] Patient Name: TRINIDAD ADAIR MR #: [id number] : 1975 Age/Sex: 42/M Req #: [id number] Adm Physician: Ordered by: ARAVIND HITCHCOCK MD Report #: [id number] Location: Room/Bed: ____ Procedure: [id number] DX/CHEST SINGLE (PORTABLE) Exam Date: Exam Time: REPORT STATUS: Signed EXAMINATION: CHEST SINGLE (PORTABLE) INDICATION: Shortness of breath COMPARISON: None FINDINGS: TUBES and LINES: Right IJ dual-lumen dialysis catheter with tip overlying the atrial caval junction LUNGS: Lungs are not well inflated. There are bibasilar atelectasis. There is perihilar interstitial opacities, consistent with interstitial edema. PLEURA: Small bilateral pleural effusions HEART AND MEDIASTINUM: Cardiac size is moderately enlarged. BONES AND SOFT TISSUES: No acute osseous lesion. Soft tissues are unremarkable. UPPER ABDOMEN: No free air under the diaphragm. IMPRESSION: 1. Findings are consistent with fluid overload and small bilateral pleural effusions. 2. Enlargement of the cardiac silhouette may be related to cardiomegaly or pericardial effusion. Signed by: Dr. Sd Snell M.D. on 10/28/2017 2: 09 AM Dictated By: SD LOVELL MD 8 Transcribed By: CECI on 10/28/17208 COPY TO: ARAVIND HITCHCOCK MD
[2018-04-01] MEDS ORDERED: ASPIRIN 325 MG TAB PO ONE (13:00)
[2018-04-01 13:14] LABS: BASOPHILS # (AUTO) 0.1 (0.0-0.1); BASOPHILS % 1.1 % (0.0-1.0); EOSINOPHILS # (AUTO) 0.2 (0.0-0.4); EOSINOPHILS % 3.3 % (0.0-6.0); HEMATOCRIT 28.1 % (38.2-49.6); HEMOGLOBIN 8.8 g/dL (14.0-18.0); LYMPHOCYTES # (AUTO) 0.8 (1.0-3.2); LYMPHOCYTES % 11.5 % (18.0-39.1); MEAN CORPUSCULAR HEMOGLOBIN 30.1 pg (28-32); MEAN CORPUSCULAR HGB CONC 31.3 g/dL (31-35); MEAN CORPUSCULAR VOLUME 96.2 fL (81-99); MONOCYTES # (AUTO) 0.7 (0.2-0.8); MONOCYTES % 9.8 % (4.4-11.3); NEUTROPHILS # (AUTO) 5.4 (2.1-6.9); PLATELET COUNT 313 x10e3/uL (140-360); RED BLOOD COUNT 2.92 x10e6/uL (4.3-5.7); RED CELL DISTRIBUTION WIDTH 16.1 % (11.7-14.4)
--- NOTE | 2018-04-01 13:19 | Diagnostic Imaging Report ---
PROCEDURE: A single AP view of the chest. COMPARISON: 12/10/2017 INDICATIONS: WEAKNESS, SHORTNESS OF BREATH, CHEST PAIN FINDINGS: Lines/tubes: Right internal jugular dialysis catheter has its tip in the right atrium Lungs: Diffuse perihilar opacity. Bibasilar airspace opacities. Thickening of the minor fissure. Pleura: Small bilateral pleural effusions. Heart and mediastinum: Cardiomegaly, unchanged. Bones: No acute bony abnormality. IMPRESSION: Cardiomegaly with pulmonary edema and bilateral pleural effusions, appearing slightly worse than on the prior examination. Dictated by: Jono Roe M.D. on 04/01/2018 at 13:20 Electronically approved by: Jono Roe M.D. on 04/01/2018 at 13:20
[2018-04-01 13:28] LABS: INR 1.31; PROTHROMBIN TIME 15.3 seconds (11.9-14.5)
[2018-04-01 13:29] LABS: PARTIAL THROMBOPLASTIN TIME 33.9 seconds (23.8-35.5)
[2018-04-01 13:36] LABS: ALBUMIN 2.6 g/dL (3.5-5.0); ALBUMIN/GLOBULIN RATIO 0.5 (0.8-2.0); CREATININE, SERUM 3.08 mg/dL (0.72-1.25); MAGNESIUM 2.1 MG/DL (1.3-2.1)
[2018-04-01 13:43] LABS: CREATINE KINASE MB 9.9 ng/mL (0-5.0)
[2018-04-01] MEDS ORDERED: MORPHINE SULFATE 2 MG/ML SYR IV STA (13:46)
[2018-04-01] MEDS ORDERED: DIATRIZOATE MEGL/DIATRIZOA SOD 30 ML BTL PO ONE (14:38)
[2018-04-01] MEDS ORDERED: DIPHENHYDRAMINE HCL INJ 50 MG/ML VIAL ONE (15:20)
[2018-04-01] MEDS ORDERED: DIPHENHYDRAMINE HCL INJ 50 MG/ML VIAL IV ONE (15:30)
[2018-04-01] MEDS ORDERED: CLONIDINE HCL 0.2 MG TAB PO ONE (16:45)
--- NOTE | 2018-04-01 16:52 | Diagnostic Imaging Report ---
PROCEDURE: CT ABDOMEN AND PELVIS WITHOUT CONTRAST TECHNIQUE: The abdomen and pelvis were scanned utilizing a multidetector helical scanner from the diaphragm to the lesser trochanter without IV contrast. Coronal and sagittal multiplanar reformations were obtained. COMPARISON: 12/10/2017 INDICATIONS: abd pain FINDINGS: ABSENCE OF INTRAVENOUS CONTRAST DECREASES SENSITIVITY FOR DETECTION OF FOCAL LESIONS AND VASCULAR PATHOLOGY. LINES/TUBES: Partially visualized central venous catheter has its tip in the right atrium. LOWER THORAX: Unchanged rounded atelectasis in the right lung base with associated pleural effusion. Small left pleural effusion, also unchanged. Cardiomegaly with small pericardial effusion, unchanged. HEPATOBILIARY: The liver is enlarged, measuring 19.8 cm in craniocaudal dimension. This is unchanged. No focal hepatic lesions. No biliary ductal dilatation. SPLEEN: No splenomegaly. PANCREAS: No focal masses or ductal dilatation. ADRENALS: No adrenal nodules. KIDNEYS/URETERS: No hydronephrosis, stones, or solid mass lesions. PELVIC ORGANS/BLADDER: Unremarkable. PERITONEUM / RETROPERITONEUM: No free intraperitoneal air. There is moderate loculated ascites which is stable or slightly increased since the prior examination. Stable 3 cm calcified lesion in the right lower quadrant (series 2, image 71) may represent an old omental infarct. LYMPH NODES: No lymphadenopathy. VESSELS: There are extensive, diffuse vascular calcifications throughout the abdomen and pelvis. GI TRACT: Mild wall thickening of the distal sigmoid and rectum is likely due to underdistention. No abnormal bowel dilatation. No evidence of obstruction. BONES AND SOFT TISSUES: Diffuse soft tissue anasarca. IMPRESSION: 1. Mild thickening of the distal sigmoid and rectum is likely an artifact related to underdistention. Correlate for any evidence of colitis. 2. Otherwise no specific findings to account for the patient's abdominal pain. 3. Cardiomegaly, pericardial and pleural effusions, soft tissue anasarca, all consistent with volume overload. Ascites is stable or slightly increased since the prior examination. Dictated by: Jono Roe M.D. on 04/01/2018 at 16:53 Electronically approved by: Jono Roe M.D. on 04/01/2018 at 16:53
[2018-04-01] MEDS ORDERED: HYDRALAZINE HCL 20 MG/ML VIAL IV ONE (17:45)
[2018-04-01] MEDS ORDERED: DEXTROSE 50% SYRINGE 50 ML IV PRN (18:30)
[2018-04-01] MEDS ORDERED: CLONIDINE HCL 0.2 MG TAB PO PRN (20:30)
[2018-04-01] MEDS: INSULIN REGULAR, HUMAN 100 UNIT/1 ML 3ML VIAL SQ SCH (21:00)
[2018-04-01 21:20] VITALS: BP 167/99
[2018-04-01] MEDS: MORPHINE SULFATE 2 MG/ML SYR IV PRN (21:28)
[2018-04-01 21:49] LABS: CREATINE KINASE MB 9.6 ng/mL (0-5.0)
[2018-04-01 21:56] VITALS: BP 167/99
[2018-04-02] VITALS (8 sets, daily range): BP systolic 151–180; BP diastolic 94–118
[2018-04-02] MEDS: HYDRALAZINE HCL 20 MG/ML VIAL IV PRN (00:22)
[2018-04-02] MEDS: MORPHINE SULFATE 2 MG/ML SYR IV PRN ×5 (04:46→23:40)
[2018-04-02 06:07] LABS: CHOL/HDL RATIO 2.4 (3.9-4.7)
[2018-04-02 06:50] LABS: CREATINE KINASE MB 6.4 ng/mL (0-5.0)
[2018-04-02 07:03] LABS: ANION GAP 17.9 mmol/L (8-16); CALCIUM 9.1 mg/dL (8.4-10.2); CREATININE, SERUM 3.74 mg/dL (0.72-1.25); POTASSIUM 4.9 mmol/L (3.5-5.1)
[2018-04-02] MEDS: INSULIN REGULAR, HUMAN 100 UNIT/1 ML 3ML VIAL SQ SCH ×4 (07:30→21:00)
--- NOTE | 2018-04-02 07:51 | History and Physical ---
PRIMARY CARE PHYSICIAN: The patient does not recall. CHIEF COMPLAINT: Shortness of breath and chest pain for 1 day. HISTORY OF PRESENT ILLNESS: This is a 42-year-old man with a history of diabetes mellitus, end-stage renal disease, on hemodialysis, now developing shortness of breath and chest discomfort for the past day. Denies any dizziness. Denies any fever, chills, sweats. The patient had fallen several weeks ago with a wound to his scalp, and he also has sacral ulcers, which he has been managing. The patient denies missing any dialysis sessions. PAST MEDICAL HISTORY: Diabetes mellitus, hypertension, end-stage renal disease, on hemodialysis, diabetic foot ulcer, status post bilateral above-knee amputation, fall, sacral ulcer. PAST SURGICAL HISTORY: Above-knee amputation bilaterally. ALLERGIES: PER ELECTRONIC MEDICAL RECORD. FAMILY HISTORY/SOCIAL HISTORY: Patient is . He has 5 children. No alcohol or illicits. MEDICATIONS: Per electronic medical record. REVIEW OF SYSTEMS: Denies any dizziness. PHYSICAL EXAMINATION VITAL SIGNS: Have been reviewed. GENERAL: A tired-appearing man resting in bed. HEENT: Anicteric. He has a scalp wound at the crown of his scalp. CARDIOVASCULAR: Normal S1 and S2. LUNGS: Moderate breath sounds, but reduced throughout at the bases. He has markedly reduced breath sounds. ABDOMEN: Soft and nondistended, but tender throughout. EXTREMITIES: He has bilateral above-knee amputations, which are well-healed. MUSCULOSKELETAL: He has right-sided arm hemodialysis catheter. He has left buttock decubitus ulcer, stage 4. He has right buttock decubitus ulcer, stage 3. SKIN: Dry. PSYCHIATRIC: Flat affect. LABS: Reviewed. MEDICATIONS: Reviewed. ASSESSMENT AND PLAN: This is a 42-year-old man with: 1. Chest pain: Likely related to excess fluid. Nephrology has been consulted for dialysis. His troponin is negative times 3. His LDL is 48 and triglycerides are 54. Echocardiogram obtained shows ejection fraction of 30% to 35% and small pericardial effusion. 2. Pericardial effusion: This is small. Will need dialysis to remove excess fluid. 3. Pleural effusions: Dialysis to remove the fluid. 4. End-stage renal disease, on hemodialysis: Nephrology has been consulted. 5. Gluteal ulcers, stage 3 and stage 4: Will consult surgery for evaluation. Will treat him with antibiotics. 6. Diabetes mellitus: Will obtain hemoglobin A1c. Use sliding scale insulin. 7. Ambulatory dysfunction with bilateral above-knee amputations: Will get physical therapy on board to assist with transfers. The patient did have a fall recently. 8. Scalp wound: Surgical evaluation. 9. Prophylaxis: Will use heparin and Pepcid. 10. Disposition: Start antibiotics for gluteal ulcers and scalp ulcer. Surgical consultation. Follow up with their recommendations. Job#: [id number] [email or web address]
[2018-04-02] MEDS: CARVEDILOL 12.5 MG TAB PO SCH ×3 (08:25→18:26)
[2018-04-02] MEDS: FAMOTIDINE 20 MG TAB PO SCH ×2 (08:29→18:26)
[2018-04-02] MEDS: CEFEPIME HCL 1 GM VIAL IV SCH (08:29)
[2018-04-02] MEDS: ASPIRIN 325 MG TAB EC PO SCH (08:29)
[2018-04-02] MEDS: HEPARIN SOD (PORCINE) 5,000 UNIT/ML VIAL SC SCH ×2 (08:33→21:00)
[2018-04-02] MEDS ORDERED: SODIUM CHLORIDE 0.9% 250ML 250 ML ONE (08:57)
[2018-04-02] MEDS: CLINDAMYCIN 300MG 50 ML IV SCH ×2 (09:10→18:58)
--- NOTE | 2018-04-02 10:27 | Cardiology Report ---
DATE OF STUDY: April 01, 2018 ECHOCARDIOGRAM ATTENDING PHYSICIAN: Dr. Hayder Meza M-MODE: Dilated left and right atrium. Moderate left ventricular hypertrophy. Severely diminished left ventricular contractility. Normal mitral and aortic valves. Pericardial effusion. SECTOR SCAN: Moderately dilated left and right atrium. Moderate left ventricular hypertrophy. Diminished left ventricular contractility. Ejection fraction 25% to 30%. Mitral, aortic and tricuspid valves are grossly normal. There is moderate pericardial effusion measuring between 1.1 to 2.2 cm. CARDIAC DOPPLER STUDY WITH COLOR: One plus tricuspid regurgitation. One plus pulmonic regurgitation. Pulmonary artery systolic pressure estimated at 41 mmHg. CONCLUSIONS 1. Moderate left ventricular hypertrophy with severely diminished left ventricular contractility. Estimated ejection fraction 25% to 30%. 2. Moderate pericardial effusion, mostly posterior measuring 1.1 to 2.2 cm. 3. Mild tricuspid regurgitation with dilated right atrium with mild pulmonary hypertension. Pulmonary artery systolic pressure estimated at 41 mmHg and with mild pulmonic regurgitation. 4. Dilated left atrium. Job#: [id number] RI cc: HAYDER MEZA MD
[2018-04-02] MEDS: EPOETIN ALFA 10000 UNIT/ML VIAL SC SCH (12:29)
--- NOTE | 2018-04-02 13:42 | Consultation ---
DATE OF CONSULTATION: April 02, 2018 NEPHROLOGY CONSULTATION REASON FOR CONSULTATION: End-stage renal disease. This is a 42-year-old male who is known to our service with multiple medical problems, hypertension, diabetes, CA, coronary artery disease, CHF, history of cirrhosis and end-stage renal disease on hemodialysis every Thursday, Thursday, and Thursday at [facility]. He has been going for each session; however, he has frequent admissions with the same vague abdominal pain, nausea and vomiting. He is status post cholecystectomy at [facility] before and attempt at ERCP at [facility] also before. He has a history of pericardial effusion, status post window at [facility]. Basically, he is coming complaining of some shortness of breath along with chest discomfort and abdominal pain on the scale 7 out of 10, diffuse with nausea and decrease in appetite. We are consulted to manage dialysis as an inpatient. PAST MEDICAL HISTORY: As mentioned above. PAST SURGICAL HISTORY: Status post bilateral above-knee amputations, pericardial window, status post endoscopy and colonoscopy, status post lap rell. FAMILY HISTORY: Positive for hypertension and diabetes. ALLERGIES: NEGATIVE PER RECORD FOR ALLERGIES. PHYSICAL EXAMINATION VITAL SIGNS: Today blood pressure 170/118. Heart rate is 67. Temperature 98. GENERAL APPEARANCE: No acute distress times 3. HEAD, EARS, EYES, NECK: No lymphadenopathy. HEART: Regular rate and rhythm. LUNGS: Bilateral rales and crackles. ABDOMEN: Soft, nontender. EXTREMITIES: No edema. LABS: Today hemoglobin 8.8. Potassium 4.9. His BNP is 15,336. Chest x-ray has pulmonary edema. ASSESSMENT AND PLAN 1. End-stage renal disease on hemodialysis every Thursday, Thursday and Thursday. We are going to dialyze today. Order has been given. 2. Electrolytes. Low potassium bath. 3. Congestive heart failure and pericardial effusion, status post previous pericardial window at [facility]. At this time, we are going to be aggressively pulling fluids. We are going to challenge UF today and again extra PUF tomorrow morning. 4. Anemia of chronic disease. Add Epogen. 5. Hypertension. Reassess for fluid removal after hemodialysis and titrate medication accordingly. 6. Diabetes. Monitor blood sugar. 7. Recurrent admissions for abdominal pain and nausea. CAT scan was unremarkable. We were questioning whether the patient has drug-seeking attitude for pain medication. 8. Chest discomfort. Probably secondary to fluid overload and high blood pressure. His troponins are negative, 0.057. Monitor closely. Challenge ultrafiltration and reassess. Thank you for the consult. We will update the primary team for further recommendations. Job#: [id number]
[2018-04-02] MEDS: CLONIDINE HCL 0.2 MG TAB PO SCH ×2 (14:00→23:17)
--- NOTE | 2018-04-02 14:02 | Consultation ---
DATE OF CONSULTATION: April 02, 2018 CARDIOLOGY CONSULTATION ATTENDING PHYSICIAN: Liam Araujo MD CLINICAL HISTORY: This is a 42-year-old white man with multiple medical problems including end-stage renal disease, bilateral above-knee amputations and previous history of cardiomyopathy. Referred by Dr. iLam Araujo for cardiovascular evaluation in the setting of shortness of breath. This patient was hospitalized at [facility] last year and another episode earlier this year. Echocardiogram done previously had shown a large to moderate size posterior pericardial effusion without definite tamponade. He states that he has had pericardiocentesis in the past. His ejection fraction at that time was approximately 45%. He is dialyzed 3 times a week and states that he has not missed any dialysis episode. He presented nevertheless with shortness of breath. Cardiology consultation requested. PAST MEDICAL HISTORY: Remarkable for diabetes, hypertension, diabetic foot ulcer, decubitus ulcer. PAST SURGERIES: Include bilateral above-knee amputations. ALLERGIES: PLEASE REFER TO THE RECORD. FAMILY HISTORY: He has 5 children. He lives with mother, aunt, . MEDICATIONS 1. Aspirin. 2. Coreg 6.25 b.i.d. 3. Clonidine 0.2 mg q.8 h. 4. Pepcid 20 mg b.i.d. 5. Insulin. REVIEW OF SYSTEMS: Noncontributory. PHYSICAL EXAMINATION GENERAL: He appears to be chronically ill. He has a dialysis catheter in the right subclavian. CARDIAC: Jugular veins are not distended. S1 and S2 distant. There is a 1/6 systolic murmur. LUNGS: Clear. ABDOMEN: Soft. Bowel sounds are present. EXTREMITIES: No cyanosis, clubbing or edema. LABORATORY STUDIES: Echocardiogram showed moderate left ventricular hypertrophy. Cannot exclude infiltrate or cardiomyopathy. Ejection fraction 25% to 30%. There is mild pulmonary hypertension at 41 mmHg. Aortic velocity is normal. A 12-lead EKG showed no acute changes. The chest x-ray showed cardiomegaly with pulmonary congestion, bilateral pleural effusions. Abdominal CT scan showed thickening of the distal sigmoid and rectum thought to be artifact, cardiomegaly, and pericardial effusion. IMPRESSION 1. Recurrent moderate-size posterior pericardial effusion, measuring in the range of 1.1 to 2.2 cm without cardiac tamponade and status post previous pericardiocentesis, likely to be related to congestive heart failure and pulmonary hypertension as well as uremic pericarditis. 2. Severe cardiomyopathy with ejection fraction in the range of 25% with moderately thickened myocardium. Consider infiltrative cardiomyopathy. 3. Pulmonary hypertension at 41 mmHg. 4. Cannot exclude coronary artery disease. 5. Bilateral above-knee amputations, apparently because of nonhealing ulcers. 6. Decubitus sacral ulcers. 7. Congestive heart failure due to above-mentioned cardiomyopathy. 8. End-stage renal disease on chronic hemodialysis with volume overload. RECOMMENDATIONS: Increase dialysis. Treatment for cardiomyopathy. Will discuss with attending. CHARLES KIM MD Job#: [id number] cc:LIAM ARAUJO MD
[2018-04-02] MEDS ORDERED: SODIUM CHLORIDE 0.9% 1000ML 1,000 ML ONE (14:48)
[2018-04-02] MEDS ORDERED: HYDRALAZINE HCL 25 MG TAB PO SCH ×2 (15:00)
[2018-04-02] MEDS: HYDRALAZINE HCL 100 MG TABLET PO SCH ×2 (15:00→22:10)
[2018-04-02] MEDS ORDERED: HEPARIN SOD (PORCINE) 1000 UNIT/ML SDV IV PRN (16:45)
[2018-04-02] MEDS ORDERED: SODIUM CHLORIDE 0.9% 1000ML 1,000 ML IV PRN (17:00)
--- NOTE | 2018-04-02 17:40 | Consultation ---
DATE OF CONSULTATION: April 02, 2018 SURGICAL CONSULT REFERRING PHYSICIAN: Dr. Awais Medina. HISTORY OF PRESENT ILLNESS: The patient is a 42-year-old male who is well known to me. He is admitted to the hospital with shortness of breath and was found to have bilateral ulcers on his buttocks. He is currently being dialyzed. He has no specific complaints at this time. PAST MEDICAL HISTORY: Significant for diabetes, hypertension, end-stage renal disease, previous bilateral above-knee amputations, recent cholecystectomy. ALLERGIES: HE HAS NO KNOWN ALLERGIES. MEDICATIONS: Currently are listed in the chart. FAMILY HISTORY: Noncontributory. SOCIAL HISTORY: The patient does not drink alcohol or smoke cigarettes. REVIEW OF SYSTEMS: As stated above, otherwise was negative. PHYSICAL EXAMINATION: GENERAL: The patient is awake and alert, in no distress. VITAL SIGNS: Normal. HEENT: Reveals a wound on his scalp anteriorly, which is chronic. There is no scleral icterus. NECK: Has no masses. LUNGS: Equal breath sounds are clear bilaterally. CARDIAC: Regular rate and rhythm. ABDOMEN: Soft. There is a healed midline wound. There is mild diffuse tenderness. There is slight distention. There are no signs of peritonitis, no mass. EXTREMITIES: The are bilateral above-knee amputations which are healed. In the ischial areas, there are bilateral ulcers present. ASSESSMENT: This is a 42-year-old male with bilateral ischial ulcers and would benefit from debridement of the ulcers, which we plan to schedule to be done in the operating room on Thursday, April 05. Procedure was explained to the patient. Thank you for asking me to see Mr. David Sevilla. Job#: [id number] EV
--- NOTE | 2018-04-02 18:54 | Consultation ---
DATE OF CONSULTATION: April 02, 2018 PULMONARY CONSULTATION REASON FOR CONSULTATION: Shortness of breath. HISTORY OF PRESENT ILLNESS: Mr. David Sevilla is a 42-year-old male who presented to the emergency room with shortness of breath and chest pain. He is known to me from previous admission. He has end-stage renal disease on hemodialysis. He denies any fever or chills, nausea, vomiting. He has bilateral AKA. REVIEW OF SYSTEMS: GENERAL: Denies any fever or chills. HEAD: Denies any head trauma. ENT: Denies any earache. CVS: Chest pain and shortness of breath. REST OF THE REVIEW OF SYSTEMS: Negative except as in history of present illness. PAST MEDICAL HISTORY: Diabetes. Bilateral above-knee amputation status. End-stage renal disease. FAMILY HISTORY AND SOCIAL HISTORY: He does not smoke, does not drink. Lives with his daughter. PHYSICAL EXAMINATION: VITALS: Temperature 96.9, pulse of 55, blood pressure 156/94, respiratory rate of 18. O2 sat 100%. SKIN: Warm and dry. HEENT: Head atraumatic, normocephalic. NECK: Supple. No JVD. CHEST: Clear to auscultation bilaterally. ABDOMEN: Soft. EXTREMITIES: Bilateral AKA. NEUROLOGIC: Awake and alert. LABORATORY DATA: White count of 7.3, hemoglobin 8.8, platelets 313. Chemistry is sodium 135, potassium 4.9, chloride 95, BUN 43, creatinine 3.74. INR is 1.3. Patient underwent a chest x-ray in the emergency room which showed cardiomegaly, pulmonary edema and effusion. Abdominal pelvis CT was done which showed mild thickening of distal sigmoid colon, otherwise no specific finding to account for patient's abdominal pain, cardiomegaly, pericardial and pleural effusion, anasarca consistent with fluid overload. ASSESSMENT AND PLAN: Mr. David Sevilla is a 42-year-old male who came in with chest pain and shortness of breath. Patient is on hemodialysis every Thursday/Thursday/Thursday. Presented with shortness of breath. Likely reason is fluid overload. CURRENT PROBLEMS: 1. End-stage renal disease. 2. Fluid overload. 3. Congestive heart failure. 4. Hypertension. 5. Diabetes. PLAN: Nephrology consultation has been called. Patient will require hemodialysis. I doubt that patient has pneumonia. Likely reason for bilateral infiltrates is fluid overload. Will hold off on the antibiotics for now. Echocardiogram has been ordered, and Cardiology is following the patient. Thank you for this consult. Job#: [id number] EV
[2018-04-03] VITALS (12 sets, daily range): BP systolic 124–161; BP diastolic 78–116
[2018-04-03] MEDS: CLINDAMYCIN 300MG 50 ML IV SCH ×3 (02:41→17:03)
[2018-04-03] MEDS: MORPHINE SULFATE 2 MG/ML SYR IV PRN ×4 (04:20→21:04)
[2018-04-03] MEDS: CLONIDINE HCL 0.2 MG TAB PO SCH ×3 (06:59→21:33)
[2018-04-03] MEDS: INSULIN REGULAR, HUMAN 100 UNIT/1 ML 3ML VIAL SQ SCH ×4 (07:30→21:00)
[2018-04-03 08:33] LABS: ANION GAP 14.3 mmol/L (8-16); CALCIUM 8.9 mg/dL (8.4-10.2); CREATININE, SERUM 2.45 mg/dL (0.72-1.25); POTASSIUM 4.3 mmol/L (3.5-5.1)
[2018-04-03] MEDS: CARVEDILOL 12.5 MG TAB PO SCH ×2 (08:45→17:00)
[2018-04-03] MEDS: HYDRALAZINE HCL 100 MG TABLET PO SCH ×3 (08:45→21:00)
[2018-04-03] MEDS: FAMOTIDINE 20 MG TAB PO SCH ×2 (08:45→16:38)
[2018-04-03] MEDS: ASPIRIN 325 MG TAB EC PO SCH (08:45)
[2018-04-03] MEDS: CEFEPIME HCL 1 GM VIAL IV SCH (08:46)
[2018-04-03] MEDS: HEPARIN SOD (PORCINE) 5,000 UNIT/ML VIAL SC SCH ×2 (08:46→21:00)
--- NOTE | 2018-04-03 15:56 | Progress Note ---
DATE: April 03, 2018 TIME: 1330 OVERNIGHT: No acute events. REVIEW OF SYSTEMS: Patient denies chest pain this day. Some complaint of shortness of breath at rest. Denies nausea, vomiting or diarrhea. Further reports constipation and slight pain to left and right lower quadrants. PHYSICAL EXAMINATION VITAL SIGNS: T 97.9, P 50, BP 131/78, pulse ox 100% on nasal cannula at 4 L. GENERAL APPEARANCE: This is a chronically ill-appearing, middle-aged man lying supine in bed undergoing hemodialysis. HEAD, EYES, EARS, NOSE AND THROAT: Normocephalic. Nares are patent. Oral mucosa is dry. CARDIOVASCULAR: S1 and S2 appreciated without clicks, murmurs, or rubs. LUNGS: Diminished at bases with poor excursion. ABDOMEN: Soft and tender, lower quadrants greater than upper. Not distended. EXTREMITIES: Bilateral AKAs. Surgical wounds look old. MUSCULOSKELETAL: Right upper quadrant HD catheter intact. Left decubitus ulcer to the buttock, stage IV, with serous, foul-smelling drainage. Right buttock with serous, foul-smelling drainage, stage III. SKIN: Dry. PSYCHIATRIC: Flat affect. LABS: WBC 7.3, H and H 8.8 and 28.1 with platelets 313. Chemistries: Sodium 135, K 4.3, chloride 98, gap 14.3, CO2 27, BUN 20, creatinine 2.45. MEDICATIONS 1. Clindamycin q.8 h. IV. 2. Cefepime 0.5 g IV daily. 3. Heparin subcutaneous 5,000 units q.12. 4. Hydralazine 100 mg p.o. t.i.d. 5. Pepcid 20 mg b.i.d. a.c. by mouth. 6. Morphine sulfate 2 mg q.4 p.r.n. IV. 7. Aspirin 325 p.o. every morning. 8. Clonidine 0.2 mg by mouth every 8 hours. 9. Epogen 10,000 units on Thursday, Thursday and Thursday. 10. Hydralazine p.r.n. for high blood pressure. 11. Coreg 6.25 b.i.d. daily. 12. Sliding-scale insulin. 13. P.R.N. D50, saline for dialysis, and p.r.n. heparin for dialysis. ASSESSMENT AND PLAN: This is a 42-year-old man with: 1. Chest pain. Cardiology, pulmonology and nephrology consulted. Troponins are negative times 3. EF 30% to 35%. Chest pain related to volume overload. 2. Pericardial effusion, small. Patient undergoing hemodialysis today. 3. Pleural effusion. HD for volume management today. 4. End-stage renal disease with hemodialysis per nephrology. 5. Gluteal ulcers, stage III on the right and stage IV on the left. Dr. Johnston of surgery service will treat tentatively on Thursday. Continue with IV antibiotics for these wounds. 6. Diabetes mellitus, type 2. Sliding-scale insulin. Hemoglobin A1c found to be 4.5 on admission. 7. Ambulatory dysfunction with bilateral above-knee amputations. PT to follow up with transfer assist. Per note, the patient had fall recently. 8. Scalp wound. Surgical evaluation and recommendations. 9. Prophylaxis: Per medication list, heparin and Pepcid. 10. Disposition: Patient undergoing hemodialysis at this time. Antibiotics for gluteal wounds and scalp lesion. Surgical consult noted for intervention tentatively on 04/04/2018. Dictated by Beth Schilling NP. Job#: [id number]
[2018-04-04] VITALS (7 sets, daily range): BP systolic 123–142; BP diastolic 74–95
[2018-04-04] MEDS: MORPHINE SULFATE 2 MG/ML SYR IV PRN ×5 (00:37→19:39)
[2018-04-04] MEDS: CLINDAMYCIN 300MG 50 ML IV SCH ×3 (01:33→17:08)
[2018-04-04] MEDS: INSULIN REGULAR, HUMAN 100 UNIT/1 ML 3ML VIAL SQ SCH ×4 (07:30→20:46)
[2018-04-04 08:11] LABS: ANION GAP 15.7 mmol/L (8-16); CALCIUM 8.8 mg/dL (8.4-10.2); CREATININE, SERUM 3.6 mg/dL (0.72-1.25); POTASSIUM 4.7 mmol/L (3.5-5.1)
[2018-04-04] MEDS: FAMOTIDINE 20 MG TAB PO SCH ×2 (08:49→16:17)
[2018-04-04] MEDS: CARVEDILOL 12.5 MG TAB PO SCH ×2 (08:50→16:18)
[2018-04-04] MEDS: HYDRALAZINE HCL 100 MG TABLET PO SCH ×3 (08:50→20:45)
[2018-04-04] MEDS: ASPIRIN 325 MG TAB EC PO SCH (08:50)
[2018-04-04] MEDS: CEFEPIME HCL 1 GM VIAL IV SCH (08:50)
[2018-04-04] MEDS: HEPARIN SOD (PORCINE) 5,000 UNIT/ML VIAL SC SCH ×2 (08:51→22:01)
[2018-04-04] MEDS: ACETAMINOPHEN/CODEINE 300MG - 30MG TAB PO PRN (10:56)
[2018-04-04] MEDS: FLUCONAZOLE 100 MG/NS 50 ML 50 ML IV SCH (11:30)
--- NOTE | 2018-04-04 12:00 | Progress Note ---
DATE: April 04, 2018 TIME: 10:45 a.m. OVERNIGHT: No acute events. REVIEW OF SYSTEMS: Patient denies chest pain or shortness of breath this day. Some report of intermittent nausea without vomiting or diarrhea. Continues without bowel movement per report. Patient with complaint of penile lesion this day. PHYSICAL EXAMINATION VITAL SIGNS: T 97.9 tympanic, P 58, R 18, BP 142/84, pulse ox 100% on room air. GENERAL APPEARANCE: This is a tired-appearing man, resting supine in bed. HEENT: Normocephalic. Patient with dressing to scalp lesion. Nares are patent. Oral mucosa is dry and intact. CARDIOVASCULAR: S1 and S2 auscultated with regular rate. LUNGS: Diminished at bases with poor excursion. ABDOMEN: Soft and nontender. Slight discomfort to deep palpation in the lower quadrants. Not distended. EXTREMITIES: Bilateral AKA with well healed old surgical wounds. MUSCULOSKELETAL: Right upper chest wall HD catheter intact. Left decubitus ulcer to the buttock, stage IV, with serous, foul-smelling drainage. Right buttock with serous, foul-smelling drainage, stage III. Patient has moist, whitish exudate to glans with one 1.5-cm approximately lesion with yellow exudate noted. SKIN: Dry. PSYCHIATRIC: Flat affect. LABS: Chemistries this a.m. with Na 133, K 4.7, Cl 96, CO2 26, gap 15.7, BUN 30, creatinine 3.6. Point of care glucose ranging from 106 to 83. MEDICATIONS: Reviewed. ASSESSMENT AND PLAN: This is a 42-year-old man with: 1. Chest pain. Troponins are negative times 3. EF 30% to 35%. Card, pulmonology and nephrology with recommendations. Chest pain most likely related to volume overload on admission. 2. Pericardial effusion, small. Patient receiving HD while hospitalized. 3. Pleural effusion. HD for volume management. 4. End-stage renal disease with hemodialysis per nephrology. 5. Gluteal ulcers, stage III on the right and stage IV on the left. Dr. Johnston of surgery service will tentatively treat tomorrow. Continue IV antibiotics for these wounds. 6. Diabetes mellitus, type 2. Sliding-scale insulin. Well controlled A1c with 4.5 on admission. 7. Ambulatory dysfunction with bilateral above-knee amputations. PT will follow for transfer assistance. Patient with recent fall. 8. Scalp wound. Surgical evaluation and recommendations. Currently being treated with dressings. 9. Penile lesion with exudate. Culture obtained this day. Continue IV antibiotics, topical Polysporin and IV fluconazole. 10. Prophylaxis: Heparin and Pepcid. 11. Disposition: Antibiotic for gluteal wound, scalp lesion and complaint and findings of penile lesion with additional agents as above. Intervention for surgical debridement of gluteal wounds tentatively for 04/04/2018. Discussion with nursing this day indicates the patient has additional complaint of an itch. Will provide Lac-Hydrin for symptomatic relief. Dictated by Beth Schilling NP. Job#: [id number]
[2018-04-04] MEDS: NEOMYCIN/POLYMYX/BACITR OINT 0.9 GM PKT TOP SCH (12:49)
[2018-04-04] MEDS: CLONIDINE HCL 0.2 MG TAB PO SCH ×3 (14:39→20:45)
[2018-04-04] MEDS: DOCUSATE SODIUM 100 MG CAP PO SCH (16:17)
[2018-04-04] MEDS: AMMONIUM LACTATE 12% LOTION 225GM BTL TOP SCH (16:18)
[2018-04-04] MEDS ORDERED: SODIUM CHLORIDE 0.9% 250ML 250 ML ONE (17:02)
[2018-04-05] MEDS: MORPHINE SULFATE 2 MG/ML SYR IV PRN ×5 (00:08→22:48)
[2018-04-05] MEDS: CLINDAMYCIN 300MG 50 ML IV SCH ×3 (02:15→17:36)
[2018-04-05] MEDS: NEOMYCIN/POLYMYX/BACITR OINT 0.9 GM PKT TOP SCH (04:26)
[2018-04-05] MEDS: CLONIDINE HCL 0.2 MG TAB PO SCH ×3 (05:22→21:45)
[2018-04-05 05:51] VITALS: BP 141/68
[2018-04-05 06:57] LABS: BASOPHILS # (AUTO) 0.1 (0.0-0.1); BASOPHILS % 1.1 % (0.0-1.0); EOSINOPHILS # (AUTO) 0.8 (0.0-0.4); EOSINOPHILS % 10.1 % (0.0-6.0); HEMATOCRIT 32.5 % (38.2-49.6); HEMOGLOBIN 9.9 g/dL (14.0-18.0); LYMPHOCYTES # (AUTO) 0.6 (1.0-3.2); LYMPHOCYTES % 8.3 % (18.0-39.1); MEAN CORPUSCULAR HGB CONC 30.5 g/dL (31-35); MEAN CORPUSCULAR VOLUME 98.5 fL (81-99); MONOCYTES # (AUTO) 0.6 (0.2-0.8); MONOCYTES % 8.1 % (4.4-11.3); NEUTROPHILS # (AUTO) 5.4 (2.1-6.9); NEUTROPHILS % 72.1 % (38.7-80.0); PLATELET COUNT 384 x10e3/uL (140-360)
[2018-04-05] MEDS: INSULIN REGULAR, HUMAN 100 UNIT/1 ML 3ML VIAL SQ SCH ×4 (07:30→21:00)
[2018-04-05] MEDS: FAMOTIDINE 20 MG TAB PO SCH ×2 (07:30→17:36)
[2018-04-05 07:36] LABS: ANION GAP 20.6 mmol/L (8-16); CALCIUM 8.5 mg/dL (8.4-10.2); CREATININE, SERUM 4.63 mg/dL (0.72-1.25); POTASSIUM 5.6 mmol/L (3.5-5.1)
[2018-04-05] MEDS: ASPIRIN 325 MG TAB EC PO SCH (07:55)
[2018-04-05] MEDS: DOCUSATE SODIUM 100 MG CAP PO SCH ×2 (07:55→17:36)
[2018-04-05] MEDS: CARVEDILOL 12.5 MG TAB PO SCH ×2 (07:55→17:36)
[2018-04-05] MEDS: HEPARIN SOD (PORCINE) 5,000 UNIT/ML VIAL SC SCH ×2 (07:56→21:00)
[2018-04-05] MEDS: HYDRALAZINE HCL 100 MG TABLET PO SCH ×3 (07:56→21:45)
--- NOTE | 2018-04-05 07:56 | Progress Note ---
DATE: April 05, 2018 TIME: 7:36 a.m. OVERNIGHT: No events. REVIEW OF SYSTEMS: Denies any dizziness. PHYSICAL EXAMINATION VITAL SIGNS: Reviewed. GENERAL: A tired-appearing man resting in bed. HEENT: Anicteric. He has a scalp wound on the crown of his head with scab. CARDIOVASCULAR: Normal S1 and S2. LUNGS: Moderate breath sounds reduced at the bases. ABDOMEN: Soft, nontender and nondistended. EXTREMITIES: Bilateral above-knee amputation well-healed. MUSCULOSKELETAL: He has right-sided hemodialysis catheter. He also has right buttock ulcer, stage 3. SKIN: Dry. PSYCHIATRIC: Flat affect. LABS: Reviewed. MEDICATIONS: Reviewed. ASSESSMENT: A 42-year-old man with: 1. Chest pain. 2. Systolic congestive heart failure, acute exacerbation with small pericardia: Ejection fraction of 30% to 35%. 3. Pericardial effusion. 4. Pleural effusion. 5. End-stage renal disease, on hemodialysis. 6. Gluteal ulcer, stage 3 and 4. 7. Diabetes mellitus, type 2. 8. Ambulatory dysfunction. 9. Scalp wound. PLAN 1. Surgical management of wound is pending today. 2. Continue IV antibiotics. 3. Hemoglobin remains stable. 4. Hemoglobin A1c 4.5, LDL 48 and triglycerides 54. 5. BNP was at 13,336. Continue dialysis per nephrology. 6. All cultures remain negative. 7. Continue Neosporin ointment, IV clindamycin and IV cefepime. All cultures remain negative. 8. Surgery pending. Job#: [id number] [email or web address]
[2018-04-05] MEDS: AMMONIUM LACTATE 12% LOTION 225GM BTL TOP SCH ×2 (07:57→17:27)
[2018-04-05 08:00] VITALS: BP 148/87
[2018-04-05] MEDS: PROMETHAZINE 12.5MG/ NACL 0.9% 12.5 MG/50 ML BAG IV PRN (08:33)
[2018-04-05] MEDS: CEFEPIME HCL 1 GM VIAL IV SCH (09:00)
--- NOTE | 2018-04-05 09:20 | Consultation ---
DATE OF CONSULTATION: April 05, 2018 UROLOGY CONSULTATION REASON FOR CONSULTATION: Penile lesion. HISTORY OF PRESENT ILLNESS: Tonio Sevilla is a 42-year-old man currently on hemodialysis. He has got renal failure. The patient was noted to have a painful penile lesion, and urological consultation was sought. He was admitted for shortness of breath and chest discomfort. Denies previous hematuria and urinary tract infection. Denies any urolithiasis. PAST MEDICAL AND SURGICAL HISTORY 1. Diabetes mellitus. 2. Hypertension. 3. End-stage renal disease, on hemodialysis. 4. Diabetic foot ulcer. 5. Status post bilateral above-knee amputations. 6. Sacral ulcer. FAMILY HISTORY: Noncontributory to the urological problems. SOCIAL HISTORY: Denies smoking, ethanol or drug use. The patient lives with his daughter. CURRENT MEDICATIONS: Refer to the MAR. CURRENT ALLERGIES: PLEASE REFER TO THE MAR. REVIEW OF SYSTEMS: Consistent with the above history of present illness and past medical history. Otherwise, negative for all other systems. PHYSICAL EXAMINATION GENERAL: A cachectic, chronic ill-appearing man lying in bed in no apparent distress. In the process of starting hemodialysis today. VITALS: He is afebrile. His vital signs are currently stable. ABDOMEN: Soft, nondistended and nontender without costovertebral angle tenderness. No mass. GENITOURINARY: Testes descended bilaterally. Testes and epididymis are unremarkable. The patient has a non-circumcised male phallus with a wound in the right glans penis with purulent coverage. There is no abscess to palpation. There is no true gangrene, yet. For the remainder physical examination systems, please refer to the admission history and physical on chart. LABORATORY STUDIES: CT scan of the abdomen and pelvis revealed no hydronephrosis, stones and no renal masses. There is a 3 cm calcified lesion in the right lower quadrant. Defer to the other physicians. White cell count of 7450, hemoglobin 9.9 and platelets 384,000. The patient's count is 4.63. His glucose was low this morning at 64 and that was addressed. The patient's calcium is normal. The patient's potassium was elevated at 5.6 this morning and sodium was low at 131. ASSESSMENT 1. Penile wound. 2. End-stage renal disease, on hemodialysis. 3. Anemia. 4. Hyperkalemia. 5. Hyponatremia. PLAN 1. Instructed the nurse to clean the wound with hydrogen peroxide twice a day. 2. Defer to electrolyte and hematological abnormalities to the admitting physician and the renal service. The patient will need continued urological followup. Thank you very much for involving us in the care of your patient. Will be happy to follow him along with you, as well as an outpatient. Job#: [id number] ZBIGNIEW
[2018-04-05] MEDS ORDERED: MANNITOL 25% 12.5GM/50 ML VIAL IV PRN (09:30)
[2018-04-05] MEDS ORDERED: ALBUMIN 25% 12.5GM 0.25 GM/ML BTL IV PRN (09:30)
[2018-04-05] MEDS ORDERED: SODIUM CHLORIDE 0.9% 250ML 500 ML IV PRN (09:30)
[2018-04-05] MEDS ORDERED: SODIUM CHLORIDE 0.9% 1000ML 2,000 ML IV PRN (09:30)
[2018-04-05 10:33] VITALS: BP 143/64
[2018-04-05] MEDS: FLUCONAZOLE 100 MG/NS 50 ML 50 ML IV SCH (11:00)
[2018-04-05 12:00] VITALS: BP 149/85
[2018-04-05] MEDS: EPOETIN ALFA 10000 UNIT/ML VIAL SC SCH (12:47)
[2018-04-05] MEDS ORDERED: SODIUM CHLORIDE 0.9% 500ML 500 ML ONE (14:05)
[2018-04-05 16:00] VITALS: BP 175/76
--- NOTE | 2018-04-05 16:18 | Operative Report ---
DATE OF PROCEDURE: April 05, 2018 PREOPERATIVE DIAGNOSIS: Bilateral ischial ulcers. POSTOPERATIVE DIAGNOSIS: Bilateral ischial ulcers. PROCEDURES 1. Excisional debridement of left ischial ulcer, skin, subcutaneous tissue and bone, 30 square centimeters. 2. Excisional debridement of right ischial ulcer, skin and subcutaneous tissue, 25 square centimeters. PROPERTY CLAIMS MANAGER: None. ANESTHESIA: General. INDICATIONS AND FINDINGS: The patient is a 42-year-old male with multiple medical problems who has ulcers on both ischium. Findings at surgery were that the left ischial ulcer was about 5 x 6 cm, which was debrided and there was exposed bone at the base of the ulcer. In the right ischial ulcer, the undermined tissue was about 5 x 5 cm involving skin and subcutaneous tissue. TECHNIQUE: After adequate general anesthesia, with the patient in the right side down position, the ischial areas were prepped and draped in a sterile fashion with Betadine solution. Starting on the right side, there was an area of undermining, and this was excised back to healthy tissue. There was some granulation tissue, which was cauterized. The area of debridement was approximately 5 x 5 cm involving skin and subcutaneous tissue. In the left ischial ulcer, there was undermining in the ulcer. An area about 5 x 6 cm was debrided of skin and subcutaneous tissue. At the base of the ulcer, there was exposed bone with sharp prominence. The bone was debrided away also using a rongeur. Hemostasis was achieved with electrocautery. Each wound was irrigated with saline and then dressed open with saline-moistened gauze and sterile dressing applied. Patient tolerated the procedure well. Estimated blood loss was 40 mL. There were no complications. All counts were correct. Patient was taken to the recovery room in satisfactory condition. Job#: [id number] cc:LIAM ARAUJO MD
[2018-04-05] MEDS ORDERED: FENTANYL CITRATE/PF 100MCG/2 ML INJ ONE ×2 (16:57→19:00)
[2018-04-05] MEDS: HYDRALAZINE HCL 20 MG/ML VIAL IV PRN (18:14)
[2018-04-05] MEDS ORDERED: PROPOFOL IV EMULSION 10 MG/ML 20 ML VIAL ONE (19:00)
[2018-04-05] MEDS ORDERED: DESFLURANE 240 ML BTL INH ONE (19:00)
[2018-04-05] MEDS ORDERED: MIDAZOLAM HCL 2 MG/2 ML VIAL ONE (19:00)
[2018-04-05] MEDS ORDERED: LIDOCAINE HCL 2% LOCAL INJ 5 ML SDV VIAL INJ ONE (19:00)
[2018-04-05 20:00] VITALS: BP 149/80
[2018-04-05] MEDS: ACETAMINOPHEN/CODEINE 300MG - 30MG TAB PO PRN (20:25)
[2018-04-06] MEDS: ACETAMINOPHEN/CODEINE 300MG - 30MG TAB PO PRN (01:00)
[2018-04-06] MEDS: CLINDAMYCIN 300MG 50 ML IV SCH ×3 (02:15→17:17)
[2018-04-06] MEDS: MORPHINE SULFATE 2 MG/ML SYR IV PRN ×4 (04:15→20:47)
[2018-04-06] MEDS: CLONIDINE HCL 0.2 MG TAB PO SCH ×3 (05:49→22:00)
[2018-04-06 06:14] LABS: BASOPHILS # (AUTO) 0.1 (0.0-0.1); BASOPHILS % 1.1 % (0.0-1.0); EOSINOPHILS # (AUTO) 0.7 (0.0-0.4); EOSINOPHILS % 10.5 % (0.0-6.0); LYMPHOCYTES # (AUTO) 0.8 (1.0-3.2); LYMPHOCYTES % 11.9 % (18.0-39.1); MEAN CORPUSCULAR HEMOGLOBIN 30.5 pg (28-32); MEAN CORPUSCULAR HGB CONC 30.3 g/dL (31-35); MEAN CORPUSCULAR VOLUME 100.6 fL (81-99); MONOCYTES # (AUTO) 0.8 (0.2-0.8); MONOCYTES % 12.3 % (4.4-11.3); NEUTROPHILS # (AUTO) 4.2 (2.1-6.9); NEUTROPHILS % 63.9 % (38.7-80.0); PLATELET COUNT 371 x10e3/uL (140-360); RED BLOOD COUNT 3.28 x10e6/uL (4.3-5.7); RED CELL DISTRIBUTION WIDTH 16.3 % (11.7-14.4)
[2018-04-06] MEDS: MEROPENEM 500 MG VIAL IV SCH ×3 (06:44→23:22)
--- NOTE | 2018-04-06 07:25 | Progress Note ---
DATE: April 06, 2018 TIME: 6:15 a.m. OVERNIGHT: Underwent surgical debridement and also found to have ESBL positive. REVIEW OF SYSTEMS: Denies any chest pain. PHYSICAL EXAMINATION VITAL SIGNS: Reviewed. GENERAL: A tired-appearing man resting in bed. HEENT: Anicteric. CARDIOVASCULAR: Normal S1 and S2. LUNGS: Moderate breath sounds. ABDOMEN: Soft, nontender and nondistended. EXTREMITIES: He has bilateral AKA well-healed. : He has penis with lesion. MUSCULOSKELETAL: He has dressing on the bilateral buttock sites. SKIN: Dry. PSYCHIATRIC: Flat affect. LABS: Reviewed. MEDICATIONS: Reviewed. ASSESSMENT: A 42-year-old man with: 1. Chest pain. 2. Pericardial effusion. 3. Pleural effusion. 4. End-stage renal disease, on hemodialysis. 5. Bilateral ischial ulcers: Status post debridement. 6. He has extended spectrum beta-lactamase Proteus mirabilis positive infection of the penile lesion. 7. Ambulatory dysfunction. 8. Scalp wound. PLAN 1. Continue local wound care. 2. Change cefepime to meropenem. 3. Hemoglobin A1c was 4.5. Job#: [id number] [place]
[2018-04-06] MEDS: INSULIN REGULAR, HUMAN 100 UNIT/1 ML 3ML VIAL SQ SCH ×4 (07:30→20:47)
[2018-04-06 08:00] VITALS: BP 164/98
[2018-04-06] MEDS: AMMONIUM LACTATE 12% LOTION 225GM BTL TOP SCH ×2 (09:00→17:16)
[2018-04-06] MEDS: NEOMYCIN/POLYMYX/BACITR OINT 0.9 GM PKT TOP SCH (09:00)
[2018-04-06] MEDS: HEPARIN SOD (PORCINE) 5,000 UNIT/ML VIAL SC SCH ×2 (09:00→20:49)
[2018-04-06] MEDS: FAMOTIDINE 20 MG TAB PO SCH ×2 (09:16→17:16)
[2018-04-06] MEDS: CARVEDILOL 12.5 MG TAB PO SCH ×2 (09:17→17:00)
[2018-04-06] MEDS: ASPIRIN 325 MG TAB EC PO SCH (09:17)
[2018-04-06] MEDS: HYDRALAZINE HCL 100 MG TABLET PO SCH ×3 (09:17→21:00)
[2018-04-06] MEDS: DOCUSATE SODIUM 100 MG CAP PO SCH ×2 (09:17→17:16)
[2018-04-06] MEDS: MUPIROCIN 2% OINT 22 GM TUBE TOP SCH (09:30)
[2018-04-06] MEDS: FLUCONAZOLE 100 MG/NS 50 ML 50 ML IV SCH (11:00)
[2018-04-06 12:00] VITALS: BP 91/54
[2018-04-06] MEDS ORDERED: MEROPENEM 500MG 500 MG in SODIUM CHLORIDE 0.9% 50ML 50 ML IV SCH (14:00)
[2018-04-06 16:00] VITALS: BP 146/82
[2018-04-06 20:15] VITALS: BP 117/92
[2018-04-06 20:51] VITALS: BP 117/75
[2018-04-07] VITALS: BP 112/57
[2018-04-07] MEDS: CLINDAMYCIN 300MG 50 ML IV SCH ×3 (02:32→21:32)
[2018-04-07] MEDS: MORPHINE SULFATE 2 MG/ML SYR IV PRN ×2 (03:22→21:32)
[2018-04-07] MEDS: CLONIDINE HCL 0.2 MG TAB PO SCH ×3 (06:00→21:32)
[2018-04-07 06:24] LABS: BASOPHILS # (AUTO) 0.1 (0.0-0.1); BASOPHILS % 0.5 % (0.0-1.0); EOSINOPHILS # (AUTO) 0.7 (0.0-0.4); EOSINOPHILS % 4.9 % (0.0-6.0); HEMATOCRIT 33.5 % (38.2-49.6); HEMOGLOBIN 10.4 g/dL (14.0-18.0); LYMPHOCYTES # (AUTO) 0.7 (1.0-3.2); LYMPHOCYTES % 4.8 % (18.0-39.1); MEAN CORPUSCULAR HEMOGLOBIN 30.6 pg (28-32); MEAN CORPUSCULAR VOLUME 98.5 fL (81-99); MONOCYTES # (AUTO) 1.3 (0.2-0.8); MONOCYTES % 9.4 % (4.4-11.3); NEUTROPHILS # (AUTO) 10.9 (2.1-6.9); PLATELET COUNT 385 x10e3/uL (140-360); RED CELL DISTRIBUTION WIDTH 16.2 % (11.7-14.4)
[2018-04-07] MEDS: MEROPENEM 500 MG VIAL IV SCH ×3 (06:45→21:32)
[2018-04-07 06:56] LABS: ANION GAP 16.8 mmol/L (8-16); CALCIUM 8.7 mg/dL (8.4-10.2); CREATININE, SERUM 4.59 mg/dL (0.72-1.25); POTASSIUM 4.8 mmol/L (3.5-5.1)
--- NOTE | 2018-04-07 07:23 | Progress Note ---
DATE: April 07, 2018 TIME: 6:58 a.m. OVERNIGHT: No events. REVIEW OF SYSTEMS: Denies any dizziness. PHYSICAL EXAMINATION VITAL SIGNS: Reviewed. GENERAL: A tired-appearing man resting in bed. HEENT: Anicteric. He has a scalp wound on the crown. CARDIOVASCULAR: Normal S1 and S2. LUNGS: Moderate breath sounds. ABDOMEN: Soft, nontender and nondistended. : He has an ulcer on the glans of the penis. EXTREMITIES: He has bilateral AKA well-healed. MUSCULOSKELETAL: He has a dressing on the buttocks site area. SKIN: Dry. PSYCHIATRIC: Flat affect. LABS: Reviewed. MEDICATIONS: Reviewed. ASSESSMENT: A 42-year-old man with: 1. Chest pain. 2. Pericardial effusion, minimal. 3. Pleural effusion. 4. End-stage renal disease, on hemodialysis. 5. Bilateral ischial ulcer: Status post debridement. 6. Extended spectrum beta-lactamase Proteus mirabilis positive infection of the penile lesion. 7. Ambulatory dysfunction. 8. Scalp wound. PLAN 1. Leukocytosis. Continue meropenem. Continue antibiotics. 2. Continue dialysis. 3. Continue IV meropenem and IV clindamycin. 4. Discharge planning to skilled facility. Job#: [id number] ZBIGNIEW
[2018-04-07] MEDS: INSULIN REGULAR, HUMAN 100 UNIT/1 ML 3ML VIAL SQ SCH ×4 (07:30→21:00)
[2018-04-07 08:20] VITALS: BP 123/61
[2018-04-07] MEDS: HYDRALAZINE HCL 100 MG TABLET PO SCH ×3 (09:00→21:32)
[2018-04-07] MEDS: DOCUSATE SODIUM 100 MG CAP PO SCH ×2 (09:00→17:26)
[2018-04-07] MEDS: CARVEDILOL 12.5 MG TAB PO SCH ×2 (09:00→17:00)
[2018-04-07] MEDS: ASPIRIN 325 MG TAB EC PO SCH (09:25)
[2018-04-07] MEDS: FAMOTIDINE 20 MG TAB PO SCH ×2 (09:25→17:26)
[2018-04-07] MEDS: ACETAMINOPHEN/CODEINE 300MG - 30MG TAB PO PRN ×4 (09:26→23:40)
[2018-04-07] MEDS: HEPARIN SOD (PORCINE) 5,000 UNIT/ML VIAL SC SCH ×2 (09:26→21:33)
[2018-04-07 09:27] VITALS: BP 123/61
[2018-04-07] MEDS: AMMONIUM LACTATE 12% LOTION 225GM BTL TOP SCH ×2 (11:13→17:26)
[2018-04-07 12:24] VITALS: BP 105/56
[2018-04-07] MEDS: FLUCONAZOLE 100 MG/NS 50 ML 50 ML IV SCH (14:55)
[2018-04-07] MEDS ORDERED: EPOETIN ALFA 10000 UNIT/ML VIAL SC SCH (15:00)
[2018-04-07] MEDS: MUPIROCIN 2% OINT 22 GM TUBE TOP SCH (15:22)
[2018-04-07] MEDS: NEOMYCIN/POLYMYX/BACITR OINT 0.9 GM PKT TOP SCH (15:22)
[2018-04-07 16:26] VITALS: BP 103/55
[2018-04-07] MEDS: EPOETIN ALFA 10000 UNIT/ML VIAL SC SCH (17:26)
[2018-04-07 20:14] VITALS: BP 128/68
[2018-04-08] VITALS (7 sets, daily range): BP systolic 94–131; BP diastolic 53–77
[2018-04-08] MEDS: PROMETHAZINE 12.5MG/ NACL 0.9% 12.5 MG/50 ML BAG IV PRN ×2 (00:03→15:37)
[2018-04-08] MEDS: CLONIDINE HCL 0.2 MG TAB PO SCH ×3 (05:42→22:00)
[2018-04-08] MEDS: MEROPENEM 500 MG VIAL IV SCH ×3 (05:42→22:15)
[2018-04-08] MEDS: CLINDAMYCIN 300MG 50 ML IV SCH ×3 (05:42→22:15)
[2018-04-08] MEDS: INSULIN REGULAR, HUMAN 100 UNIT/1 ML 3ML VIAL SQ SCH ×4 (07:30→20:57)
[2018-04-08 07:35] LABS: BASOPHILS # (AUTO) 0.1 (0.0-0.1); BASOPHILS % 0.4 % (0.0-1.0); EOSINOPHILS # (AUTO) 0.4 (0.0-0.4); EOSINOPHILS % 2.8 % (0.0-6.0); HEMATOCRIT 31.1 % (38.2-49.6); HEMOGLOBIN 9.7 g/dL (14.0-18.0); LYMPHOCYTES % 6.3 % (18.0-39.1); MEAN CORPUSCULAR HEMOGLOBIN 30.6 pg (28-32); MEAN CORPUSCULAR HGB CONC 31.2 g/dL (31-35); MEAN CORPUSCULAR VOLUME 98.1 fL (81-99); MONOCYTES # (AUTO) 1.6 (0.2-0.8); MONOCYTES % 10.1 % (4.4-11.3); NEUTROPHILS # (AUTO) 12.5 (2.1-6.9); PLATELET COUNT 337 x10e3/uL (140-360); RED BLOOD COUNT 3.17 x10e6/uL (4.3-5.7); RED CELL DISTRIBUTION WIDTH 16.3 % (11.7-14.4)
[2018-04-08] MEDS: MUPIROCIN 2% OINT 22 GM TUBE TOP SCH (09:00)
[2018-04-08] MEDS: FAMOTIDINE 20 MG TAB PO SCH ×2 (09:32→17:12)
[2018-04-08] MEDS: CARVEDILOL 12.5 MG TAB PO SCH ×2 (09:32→17:12)
[2018-04-08] MEDS: HEPARIN SOD (PORCINE) 5,000 UNIT/ML VIAL SC SCH ×2 (09:32→20:57)
[2018-04-08] MEDS: NEOMYCIN/POLYMYX/BACITR OINT 0.9 GM PKT TOP SCH (09:32)
[2018-04-08] MEDS: HYDRALAZINE HCL 100 MG TABLET PO SCH ×3 (09:32→20:57)
[2018-04-08] MEDS: ASPIRIN 325 MG TAB EC PO SCH (09:32)
[2018-04-08] MEDS: DOCUSATE SODIUM 100 MG CAP PO SCH ×2 (09:32→17:12)
[2018-04-08] MEDS: ACETAMINOPHEN/CODEINE 300MG - 30MG TAB PO PRN ×2 (10:05→13:42)
[2018-04-08] MEDS: AMMONIUM LACTATE 12% LOTION 225GM BTL TOP SCH ×2 (10:10→16:28)
[2018-04-08 10:33] LABS: EOSINOPHILS % (MANUAL) 2 % (0-7); LYMPHOCYTES % (MANUAL) 4 % (19-48); MONOCYTES % (MANUAL) 6 % (3.4-9.0); NEUTROPHILS % (MANUAL) 87 % (40-74)
[2018-04-08 10:35] LABS: ANISOCYTOSIS SLIGHT; HYPOCHROMASIA SLIGHT; PLATELET ESTIMATE ADEQUATE; POIKILOCYTOSIS SLIGHT; RBC MORPHOLOGY COMMENT NORMAL
[2018-04-08 10:36] LABS: PLATELET MORPHOLOGY COMMENT FEW LARGE
[2018-04-08] MEDS: FLUCONAZOLE 100 MG/NS 50 ML 50 ML IV SCH (12:28)
[2018-04-08] MEDS ORDERED: SERTRALINE HCL 50 MG TAB PO SCH (15:45)
[2018-04-08] MEDS: OXAZEPAM 10 MG CAP PO PRN (16:05)
[2018-04-08] MEDS: SERTRALINE HCL 50 MG TAB PO SCH (20:57)
[2018-04-09] VITALS: BP 128/68
[2018-04-09 04:00] VITALS: BP 122/68
[2018-04-09] MEDS: MEROPENEM 500 MG VIAL IV SCH ×3 (06:34→21:42)
[2018-04-09] MEDS: CLINDAMYCIN 300MG 50 ML IV SCH ×3 (06:34→21:42)
[2018-04-09] MEDS: CLONIDINE HCL 0.2 MG TAB PO SCH ×3 (06:34→22:00)
[2018-04-09 06:49] LABS: BASOPHILS # (AUTO) 0.1 (0.0-0.1); BASOPHILS % 0.8 % (0.0-1.0); EOSINOPHILS # (AUTO) 0.6 (0.0-0.4); EOSINOPHILS % 5.1 % (0.0-6.0); HEMATOCRIT 34.1 % (38.2-49.6); HEMOGLOBIN 10.6 g/dL (14.0-18.0); LYMPHOCYTES # (AUTO) 0.8 (1.0-3.2); LYMPHOCYTES % 6.2 % (18.0-39.1); MEAN CORPUSCULAR HEMOGLOBIN 30.2 pg (28-32); MEAN CORPUSCULAR HGB CONC 31.1 g/dL (31-35); MEAN CORPUSCULAR VOLUME 97.2 fL (81-99); MONOCYTES # (AUTO) 1.1 (0.2-0.8); MONOCYTES % 9.1 % (4.4-11.3); NEUTROPHILS # (AUTO) 9.8 (2.1-6.9); NEUTROPHILS % 78.5 % (38.7-80.0); PLATELET COUNT 379 x10e3/uL (140-360); RED BLOOD COUNT 3.51 x10e6/uL (4.3-5.7); RED CELL DISTRIBUTION WIDTH 16.8 % (11.7-14.4)
[2018-04-09 07:06] LABS: ANION GAP 17.4 mmol/L (8-16); CALCIUM 9.3 mg/dL (8.4-10.2); CREATININE, SERUM 3.92 mg/dL (0.72-1.25); POTASSIUM 4.4 mmol/L (3.5-5.1)
[2018-04-09] MEDS: INSULIN REGULAR, HUMAN 100 UNIT/1 ML 3ML VIAL SQ SCH ×4 (07:30→21:00)
[2018-04-09 07:48] VITALS: BP 130/73
[2018-04-09] MEDS: CARVEDILOL 12.5 MG TAB PO SCH ×2 (09:00→17:00)
[2018-04-09] MEDS ORDERED: EPOETIN ALFA 10000 UNIT/ML VIAL SC SCH ×2 (09:00→11:45)
[2018-04-09] MEDS: HYDRALAZINE HCL 100 MG TABLET PO SCH ×3 (09:00→20:45)
[2018-04-09] MEDS: ASPIRIN 325 MG TAB EC PO SCH (10:03)
[2018-04-09] MEDS: FAMOTIDINE 20 MG TAB PO SCH ×2 (10:03→18:58)
[2018-04-09] MEDS: DOCUSATE SODIUM 100 MG CAP PO SCH ×2 (10:03→18:58)
[2018-04-09] MEDS: NEOMYCIN/POLYMYX/BACITR OINT 0.9 GM PKT TOP SCH (10:04)
[2018-04-09] MEDS: SERTRALINE HCL 50 MG TAB PO SCH (10:04)
[2018-04-09] MEDS: AMMONIUM LACTATE 12% LOTION 225GM BTL TOP SCH ×2 (10:04→17:00)
[2018-04-09] MEDS: MUPIROCIN 2% OINT 22 GM TUBE TOP SCH (10:04)
[2018-04-09] MEDS: FLUCONAZOLE 100 MG/NS 50 ML 50 ML IV SCH (10:05)
[2018-04-09 11:44] VITALS: BP 147/76
[2018-04-09 16:35] VITALS: BP 109/69
[2018-04-09] MEDS ORDERED: HEPARIN SOD (PORCINE) 1000 UNIT/ML SDV IV PRN (18:15)
[2018-04-09 20:00] VITALS: BP 155/77
[2018-04-09] MEDS ORDERED: SODIUM CHLORIDE 0.9% 250ML 250 ML ONE (20:56)
[2018-04-09] MEDS: ACETAMINOPHEN/CODEINE 300MG - 30MG TAB PO PRN (20:56)
[2018-04-10] VITALS: BP 140/73
[2018-04-10] MEDS: HYDRALAZINE HCL 100 MG TABLET PO SCH ×3 (00:15→15:00)
--- NOTE | 2018-04-10 00:23 | Progress Note ---
DATE: April 09, 2018 TIME: 7:45 a.m. OVERNIGHT: No change. REVIEW OF SYSTEMS: Denies any chest pain. PHYSICAL EXAMINATION VITAL SIGNS: Reviewed. GENERAL: A tired-appearing man resting in bed. HEENT: Anicteric. He has a scalp wound on the crown of his skull. CARDIOVASCULAR: Normal S1 and S2. LUNGS: Moderate breath sounds. ABDOMEN: Soft, nontender and nondistended. : He has an ulcer on the penis. EXTREMITIES: He has bilateral AKA well-healed. MUSCULOSKELETAL: He has a dressing on the buttocks site. SKIN: Dry. PSYCHIATRIC: Flat affect. LABS: Reviewed. MEDICATIONS: Reviewed. ASSESSMENT: A 42-year-old man with: 1. Extended spectrum beta-lactamase, Proteus mirabilis and enterococcus infection of the wounds. 2. Bilateral ischial ulcers: Status post debridement. 3. End-stage renal disease, on hemodialysis. 4. Pericardial effusion, minimal. 5. Pleural effusion. 6. Chest pain, resolved. 7. Ambulatory dysfunction. 8. Scalp wound. PLAN 1. Continue IV meropenem, IV clindamycin and IV fluconazole. 2. Continue wound care. 3. Continue pain control. 4. Case management assistance in discharge planning. He has limited resources. 5. Continue blood pressure control. 6. Follow up labs. Job#: [id number] ZBIGNIEW
--- NOTE | 2018-04-10 00:31 | Progress Note ---
DATE: April 08, 2018 TIME: 7:45 a.m. OVERNIGHT: No events. REVIEW OF SYSTEMS: Denies any chest pain. PHYSICAL EXAMINATION: VITAL SIGNS: Reviewed. GENERAL APPEARANCE: Tired-appearing man resting in bed. HEENT: Anicteric. He has wound on crown of his scalp which is healing. CARDIOVASCULAR: Normal S1 and S2. LUNGS: Moderate breath sounds. ABDOMEN: Soft, nontender, nondistended. : He has ulcer on glans of the penis. EXTREMITIES: Bilateral AKA well healing. MUSCULOSKELETAL: Dressing on buttock site. SKIN: Dry. PSYCHIATRIC: Flat affect. LABS: Reviewed. MEDICATIONS: Reviewed. ASSESSMENT: A 42-year-old man. 1. Chest pain. 2. Pericardial effusion, minimal. 3. Pleural effusion. 4. End-stage renal disease, on hemodialysis. 5. Bilateral ischial ulcers, status post debridement. 6. Extended-spectrum beta-lactamase Proteus mirabilis infection and Enterococcus faecalis infection. PLAN: 1. Continue meropenem. 2. Continue clindamycin. 3. Continue wound care. 4. Continue fluconazole. 5. Continue pain control. 6. Blood pressure is well controlled. 7. Follow up labs. 8. Check white blood cell count. 9. Patient will need discharge planning now he has limited resources. Job#: [id number]
[2018-04-10 04:00] VITALS: BP 132/72
[2018-04-10] MEDS: MEROPENEM 500 MG VIAL IV SCH ×3 (05:40→21:37)
[2018-04-10] MEDS: CLONIDINE HCL 0.2 MG TAB PO SCH ×3 (06:00→22:00)
[2018-04-10] MEDS: CLINDAMYCIN 300MG 50 ML IV SCH ×3 (06:00→21:36)
[2018-04-10 06:26] LABS: BASOPHILS # (AUTO) 0.1 (0.0-0.1); EOSINOPHILS # (AUTO) 0.7 (0.0-0.4); EOSINOPHILS % 9.6 % (0.0-6.0); HEMATOCRIT 32.9 % (38.2-49.6); HEMOGLOBIN 10.2 g/dL (14.0-18.0); LYMPHOCYTES # (AUTO) 0.9 (1.0-3.2); LYMPHOCYTES % 11.5 % (18.0-39.1); MEAN CORPUSCULAR HEMOGLOBIN 30.4 pg (28-32); MEAN CORPUSCULAR VOLUME 98.2 fL (81-99); MONOCYTES % 12.3 % (4.4-11.3); NEUTROPHILS # (AUTO) 5.1 (2.1-6.9); NEUTROPHILS % 65.5 % (38.7-80.0); PLATELET COUNT 385 x10e3/uL (140-360); RED BLOOD COUNT 3.35 x10e6/uL (4.3-5.7); RED CELL DISTRIBUTION WIDTH 16.6 % (11.7-14.4)
[2018-04-10 07:00] LABS: ANION GAP 11.9 mmol/L (8-16); CREATININE, SERUM 2.74 mg/dL (0.72-1.25); POTASSIUM 3.9 mmol/L (3.5-5.1)
[2018-04-10] MEDS: INSULIN REGULAR, HUMAN 100 UNIT/1 ML 3ML VIAL SQ SCH ×4 (07:30→20:19)
[2018-04-10 07:56] VITALS: BP 130/68
[2018-04-10] MEDS: ASPIRIN 325 MG TAB EC PO SCH (10:56)
[2018-04-10] MEDS: DOCUSATE SODIUM 100 MG CAP PO SCH ×2 (10:56→17:25)
[2018-04-10] MEDS: FAMOTIDINE 20 MG TAB PO SCH ×2 (10:56→17:25)
[2018-04-10] MEDS: MUPIROCIN 2% OINT 22 GM TUBE TOP SCH (10:57)
[2018-04-10] MEDS: SERTRALINE HCL 50 MG TAB PO SCH (10:57)
[2018-04-10] MEDS: AMMONIUM LACTATE 12% LOTION 225GM BTL TOP SCH ×2 (10:57→17:26)
[2018-04-10] MEDS: CARVEDILOL 12.5 MG TAB PO SCH ×2 (10:57→17:26)
[2018-04-10] MEDS: NEOMYCIN/POLYMYX/BACITR OINT 0.9 GM PKT TOP SCH (10:57)
[2018-04-10] MEDS: FLUCONAZOLE 100 MG/NS 50 ML 50 ML IV SCH (11:00)
[2018-04-10 16:41] VITALS: BP 181/90
[2018-04-10] MEDS: PROMETHAZINE 12.5MG/ NACL 0.9% 12.5 MG/50 ML BAG IV PRN (19:03)
[2018-04-10] MEDS: EPOETIN ALFA 10000 UNIT/ML VIAL SC SCH (19:29)
[2018-04-10] MEDS: HYDRALAZINE HCL 20 MG/ML VIAL IV PRN (19:40)
[2018-04-10 20:00] VITALS: BP 175/84
[2018-04-10] MEDS: ACETAMINOPHEN/CODEINE 300MG - 30MG TAB PO PRN (20:25)
[2018-04-10] MEDS: OXAZEPAM 10 MG CAP PO PRN (20:28)
[2018-04-11] VITALS: BP 152/71
[2018-04-11 04:00] VITALS: BP 146/70
[2018-04-11] MEDS: CLINDAMYCIN 300MG 50 ML IV SCH ×3 (05:59→22:00)
[2018-04-11] MEDS: CLONIDINE HCL 0.2 MG TAB PO SCH ×3 (06:00→22:00)
[2018-04-11] MEDS: MEROPENEM 500 MG VIAL IV SCH ×3 (06:00→21:26)
--- NOTE | 2018-04-11 06:00 | Diagnostic Imaging Report ---
CHEST SINGLE (PORTABLE), 04/11/2018 7:00 AM Technique: CHEST SINGLE (PORTABLE) Comparison: 04/01/2018 CT from 12/10/2017 Clinical history: Effusion, upright Findings: See Impression Impression: 1. Lines/Tubes: Stable right hemodialysis catheter over the right atrium. 2. Mildly enlarged cardiac silhouette. 3. Small bilateral pleural effusions with associated atelectasis. Signed by: Dr Cristina Tavarez MD on 04/11/2018 5:56 AM
[2018-04-11 07:26] VITALS: BP 140/69
[2018-04-11] MEDS: INSULIN REGULAR, HUMAN 100 UNIT/1 ML 3ML VIAL SQ SCH ×4 (07:30→21:00)
[2018-04-11] MEDS: HYDRALAZINE HCL 100 MG TABLET PO SCH ×3 (09:00→21:25)
[2018-04-11] MEDS: CARVEDILOL 12.5 MG TAB PO SCH ×2 (09:00→17:00)
[2018-04-11] MEDS: MUPIROCIN 2% OINT 22 GM TUBE TOP SCH (09:00)
[2018-04-11] MEDS: AMMONIUM LACTATE 12% LOTION 225GM BTL TOP SCH ×2 (09:00→19:05)
[2018-04-11] MEDS: SERTRALINE HCL 50 MG TAB PO SCH (09:00)
[2018-04-11] MEDS: ASPIRIN 325 MG TAB EC PO SCH (09:00)
[2018-04-11] MEDS: NEOMYCIN/POLYMYX/BACITR OINT 0.9 GM PKT TOP SCH (09:00)
[2018-04-11] MEDS: DOCUSATE SODIUM 100 MG CAP PO SCH ×2 (09:00→19:05)
[2018-04-11] MEDS: FAMOTIDINE 20 MG TAB PO SCH ×2 (12:48→16:34)
[2018-04-11 16:35] VITALS: BP 171/82
--- NOTE | 2018-04-11 18:19 | Progress Note ---
DATE: April 11, 2018 MEDICINE PROGRESS NOTE TIME OF SERVICE: 1620 OVERNIGHT: No acute events. REVIEW OF SYSTEMS: Patient denies any shortness of breath or chest pain. Further denies nausea, vomiting or diarrhea. Complains of generalized malaise. OBJECTIVE VITAL SIGNS: T 96.4, P 54, respirations 20, BP 171/82. Systolic ranging from 146 to 175 over the last 24-hour period. GENERAL APPEARANCE: A tired-appearing man resting in bed. HEENT: Normocephalic. Patient has a dressing to crown of scalp which is clean, dry and intact. No signs of tenderness. CARDIOVASCULAR: S1 and S1 auscultated without clicks or murmurs. LUNGS: Bilateral breath sounds are distant yet clear. ABDOMEN: Soft, nontender and nondistended. : Ulcer at right glans of the penis with yellow exudate. EXTREMITIES: Bilateral AKAs. Moves all. MUSCULOSKELETAL: Dressing to bilateral buttocks areas. SKIN: Dry. PSYCHIATRIC: Flat affect. LABS: Previous electrolytes reviewed. Prior counts reviewed. MEDICATIONS: The patient is taking daily Pepcid, t.i.d. hydralazine, IV clindamycin, IV meropenem, p.o. clonidine every 8 hours, Zoloft p.o. daily, Bactroban ointment topically applied every day, b.i.d. docusate sodium, b.i.d. topically, q.a.m. aspirin, Serax p.r.n. b.i.d., hydralazine p.r.n. for high blood pressure, Epogen on dialysis days, Coreg by mouth twice daily, sliding-scale insulin. PRN hemodialysis medications noted as well. ASSESSMENT AND PLAN: This is a 42-year-old man with 1. Chest pain. Blood pressure medication titration this day. 2. Pericardial effusion, minimal. 3. Pleural effusion, volume-related, resolving with fluid management per hemodialysis. 4. End-stage renal disease, on hemodialysis. 5. Bilateral ischial ulcers, scalp wound, and penile lesion. Patient continues on meropenem, clindamycin with local wound care. 6. Prophylaxis. Pepcid. 7. Disposition. Case Management working for placement with this unfortunate patient due to resource challenge. Securing HD chair per nursing staff. Patient will need IV antibiotics for ESBL, Proteus mirabilis infection and Enterococcus faecalis infection upon transfer. Dictated by: Beth Schilling NP Job#: [id number] [place]
[2018-04-11 20:00] VITALS: BP 142/71
[2018-04-12] VITALS (8 sets, daily range): BP systolic 110–189; BP diastolic 60–91
[2018-04-12] MEDS: HYDRALAZINE HCL 20 MG/ML VIAL IV PRN (00:50)
[2018-04-12] MEDS: PROMETHAZINE 12.5MG/ NACL 0.9% 12.5 MG/50 ML BAG IV PRN (00:52)
[2018-04-12] MEDS: OXAZEPAM 10 MG CAP PO PRN (03:41)
[2018-04-12] MEDS: ACETAMINOPHEN/CODEINE 300MG - 30MG TAB PO PRN (05:17)
[2018-04-12] MEDS: MEROPENEM 500 MG VIAL IV SCH ×3 (05:52→21:03)
[2018-04-12] MEDS: CLINDAMYCIN 300MG 50 ML IV SCH ×3 (05:52→22:05)
[2018-04-12] MEDS: CLONIDINE HCL 0.2 MG TAB PO SCH ×3 (05:53→21:14)
[2018-04-12] MEDS ORDERED: MECLIZINE HCL 12.5 MG TAB PO PRN (07:00)
[2018-04-12] MEDS: INSULIN REGULAR, HUMAN 100 UNIT/1 ML 3ML VIAL SQ SCH ×4 (07:30→20:09)
[2018-04-12 07:36] LABS: BASOPHILS # (AUTO) 0.1 (0.0-0.1); BASOPHILS % 1.1 % (0.0-1.0); EOSINOPHILS # (AUTO) 0.4 (0.0-0.4); HEMATOCRIT 36.6 % (38.2-49.6); HEMOGLOBIN 11.2 g/dL (14.0-18.0); LYMPHOCYTES # (AUTO) 0.5 (1.0-3.2); MEAN CORPUSCULAR HEMOGLOBIN 29.9 pg (28-32); MEAN CORPUSCULAR HGB CONC 30.6 g/dL (31-35); MEAN CORPUSCULAR VOLUME 97.6 fL (81-99); MONOCYTES # (AUTO) 0.7 (0.2-0.8); NEUTROPHILS # (AUTO) 5.6 (2.1-6.9); NEUTROPHILS % 76.7 % (38.7-80.0); PLATELET COUNT 377 x10e3/uL (140-360); RED BLOOD COUNT 3.75 x10e6/uL (4.3-5.7); RED CELL DISTRIBUTION WIDTH 16.5 % (11.7-14.4)
[2018-04-12 07:48] LABS: ANION GAP 18.3 mmol/L (8-16); CREATININE, SERUM 5.13 mg/dL (0.72-1.25); POTASSIUM 5.3 mmol/L (3.5-5.1)
--- NOTE | 2018-04-12 08:00 | Progress Note ---
DATE: April 12, 2018 TIME OF SERVICE: 6:30 a.m. OVERNIGHT: Some dizziness. Some nausea. REVIEW OF SYSTEMS: Denies any chest pain. VITAL SIGNS: Reviewed. PHYSICAL EXAMINATION GENERAL: A tired-appearing man resting in bed. HEENT: Anicteric. He has a dressing on his scalp. CARDIOVASCULAR: Normal S1 and S2. LUNGS: Moderate breath sounds. ABDOMEN: Soft, nontender and nondistended. EXTREMITIES: Bilateral above-knee amputations. Moves all extremities. MUSCULOSKELETAL: He has bilateral buttock dressings. SKIN: Dry. PSYCHIATRIC: Flat affect. LABS: Reviewed. MEDICATIONS: Reviewed. ASSESSMENT AND PLAN: A 42-year-old man. 1. Extended spectrum beta lactamase Proteus mirabilis and enterococcus infection of the wounds. 2. Bilateral ischial ulcers, status post debridement. 3. End-stage renal disease on hemodialysis. 4. Pericardial effusion, minimal. 5. Pleural effusion. 6. Chest pain, resolved. 7. Ambulatory dysfunction. 8. Scalp wound. 9. Dizziness and nausea. PLAN 1. Start meclizine. 2. Continue antibiotics and antifungal. 3. Continue pain control. 4. Continue local wound care. 5. The patient remains on IV clindamycin and IV meropenem. 6. Physical therapy and discharge planning. Job#: [id number]
[2018-04-12 08:07] LABS: EOSINOPHILS % (MANUAL) 5 % (0-7); LYMPHOCYTES % (MANUAL) 9 % (19-48); MONOCYTES % (MANUAL) 8 % (3.4-9.0); NEUTROPHILS % (MANUAL) 78 % (40-74); PLATELET ESTIMATE ADEQUATE; PLATELET MORPHOLOGY COMMENT NORMAL; RBC MORPHOLOGY COMMENT NORMAL
[2018-04-12] MEDS ORDERED: ONDANSETRON HCL 4 MG ORAL DISINTEGRATING TAB PO ONE (08:45)
[2018-04-12] MEDS: ASPIRIN 325 MG TAB EC PO SCH (08:56)
[2018-04-12] MEDS: FAMOTIDINE 20 MG TAB PO SCH ×2 (08:56→17:43)
[2018-04-12] MEDS: CARVEDILOL 12.5 MG TAB PO SCH (08:56)
[2018-04-12] MEDS: DOCUSATE SODIUM 100 MG CAP PO SCH ×2 (08:56→17:43)
[2018-04-12] MEDS: SERTRALINE HCL 50 MG TAB PO SCH (08:58)
[2018-04-12] MEDS: HYDRALAZINE HCL 100 MG TABLET PO SCH ×3 (08:58→20:07)
[2018-04-12] MEDS: SODIUM CHLORIDE 0.9% 1000ML 1,000 ML IV SCH (13:14)
[2018-04-12] MEDS ORDERED: MANNITOL 25% 12.5GM/50ML 0 ML ONE (14:12)
[2018-04-12] MEDS: MUPIROCIN 2% OINT 22 GM TUBE TOP SCH (14:16)
[2018-04-12] MEDS: AMMONIUM LACTATE 12% LOTION 225GM BTL TOP SCH ×2 (14:17→17:43)
[2018-04-13] VITALS: BP 166/79
[2018-04-13] MEDS: PROMETHAZINE 12.5MG/ NACL 0.9% 12.5 MG/50 ML BAG IV PRN (02:12)
[2018-04-13] MEDS: ACETAMINOPHEN/CODEINE 300MG - 30MG TAB PO PRN (02:16)
[2018-04-13] MEDS: HYDRALAZINE HCL 20 MG/ML VIAL IV PRN (02:45)
[2018-04-13 04:00] VITALS: BP 170/82
[2018-04-13] MEDS: CLONIDINE HCL 0.2 MG TAB PO SCH ×3 (05:07→21:03)
[2018-04-13] MEDS: MEROPENEM 500 MG VIAL IV SCH (05:08)
[2018-04-13 05:54] VITALS: BP 151/74
[2018-04-13] MEDS: CLINDAMYCIN 300MG 50 ML IV SCH ×3 (05:55→21:02)
[2018-04-13] MEDS: INSULIN REGULAR, HUMAN 100 UNIT/1 ML 3ML VIAL SQ SCH ×5 (06:06→20:53)
[2018-04-13] MEDS: SUCRALFATE 1 GM TAB PO SCH ×4 (09:57→21:02)
[2018-04-13] MEDS: CALCIUM CARBONATE 500 MG CHEWABLE TABS PO SCH ×3 (10:36→21:03)
[2018-04-13] MEDS: PANTOPRAZOLE 40 MG 10ML VIAL IV SCH (10:37)
[2018-04-13] MEDS: HYDRALAZINE HCL 100 MG TABLET PO SCH ×3 (10:37→21:00)
[2018-04-13] MEDS: SERTRALINE HCL 50 MG TAB PO SCH (10:37)
[2018-04-13] MEDS: AMMONIUM LACTATE 12% LOTION 225GM BTL TOP SCH ×2 (10:37→18:09)
[2018-04-13] MEDS: DOCUSATE SODIUM 100 MG CAP PO SCH ×2 (10:37→18:09)
[2018-04-13] MEDS: ASPIRIN 325 MG TAB EC PO SCH (10:37)
[2018-04-13 11:48] VITALS: BP 157/78
[2018-04-13] MEDS: SODIUM CHLORIDE 0.9% 1000ML 1,000 ML IV SCH (13:15)
[2018-04-13 15:52] VITALS: BP 190/84
[2018-04-13 20:32] VITALS: BP 174/88
[2018-04-14] VITALS (8 sets, daily range): BP systolic 150–198; BP diastolic 81–94
[2018-04-14] MEDS: HYDRALAZINE HCL 20 MG/ML VIAL IV PRN ×4 (00:10→23:00)
[2018-04-14 06:10] LABS: BASOPHILS # (AUTO) 0.1 (0.0-0.1); BASOPHILS % 0.9 % (0.0-1.0); EOSINOPHILS # (AUTO) 0.5 (0.0-0.4); EOSINOPHILS % 7.7 % (0.0-6.0); HEMATOCRIT 34.2 % (38.2-49.6); HEMOGLOBIN 10.6 g/dL (14.0-18.0); LYMPHOCYTES # (AUTO) 0.8 (1.0-3.2); LYMPHOCYTES % 11.3 % (18.0-39.1); MEAN CORPUSCULAR HEMOGLOBIN 29.9 pg (28-32); MEAN CORPUSCULAR VOLUME 96.3 fL (81-99); MONOCYTES % 14.8 % (4.4-11.3); NEUTROPHILS # (AUTO) 4.3 (2.1-6.9); NEUTROPHILS % 64.1 % (38.7-80.0); PLATELET COUNT 331 x10e3/uL (140-360); RED BLOOD COUNT 3.55 x10e6/uL (4.3-5.7); RED CELL DISTRIBUTION WIDTH 16.4 % (11.7-14.4)
[2018-04-14] MEDS ORDERED: CARAFATE1 GM PO (06:29)
[2018-04-14] MEDS ORDERED: Meclizine Hcl PO (06:29)
[2018-04-14] MEDS ORDERED: Calcium Carbonate 500MG Chew PO (06:29)
[2018-04-14] MEDS ORDERED: HYDRALAZINE HC100 MG PO (06:29)
[2018-04-14] MEDS ORDERED: PANTOPRAZOLE SO40 MG PO (06:29)
[2018-04-14] MEDS ORDERED: TYLENOL # 31 EA PO (06:29)
[2018-04-14] MEDS ORDERED: COLACE100 M1 PO (06:29)
[2018-04-14] MEDS ORDERED: CATAPRES0.2 MG PO (06:29)
[2018-04-14] MEDS ORDERED: ZOLOFT50 MG PO (06:29)
[2018-04-14] MEDS ORDERED: CLONIDINE HCL 0.2 MG/24 HR 1 EA PATCH TOP SCH (06:30)
[2018-04-14] MEDS ORDERED: LEVAQUIN500 MG PO (06:31)
[2018-04-14] MEDS ORDERED: CLINDAMYCIN HC150 MG PO (06:31)
[2018-04-14 06:33] LABS: ANION GAP 15.6 mmol/L (8-16); CREATININE, SERUM 3.95 mg/dL (0.72-1.25); POTASSIUM 4.6 mmol/L (3.5-5.1)
[2018-04-14] MEDS: CALCIUM CARBONATE 500 MG CHEWABLE TABS PO SCH (06:33)
[2018-04-14] MEDS: CLINDAMYCIN 300MG 50 ML IV SCH ×2 (06:35→13:55)
[2018-04-14] MEDS: INSULIN REGULAR, HUMAN 100 UNIT/1 ML 3ML VIAL SQ SCH ×4 (07:30→21:00)
[2018-04-14] MEDS: AMMONIUM LACTATE 12% LOTION 225GM BTL TOP SCH ×2 (08:23→16:34)
[2018-04-14] MEDS: HYDRALAZINE HCL 100 MG TABLET PO SCH ×3 (08:32→21:37)
[2018-04-14] MEDS: SERTRALINE HCL 50 MG TAB PO SCH (08:32)
[2018-04-14] MEDS: PANTOPRAZOLE 40 MG 10ML VIAL IV SCH (08:32)
[2018-04-14] MEDS: ASPIRIN 325 MG TAB EC PO SCH (08:32)
[2018-04-14] MEDS: SUCRALFATE 1 GM TAB PO SCH ×4 (08:32→21:37)
[2018-04-14] MEDS: DOCUSATE SODIUM 100 MG CAP PO SCH ×2 (08:32→16:34)
[2018-04-14] MEDS: SODIUM CHLORIDE 0.9% 1000ML 1,000 ML IV SCH (13:15)
[2018-04-14] MEDS: ACETAMINOPHEN/CODEINE 300MG - 30MG TAB PO PRN (15:43)
[2018-04-14] MEDS ORDERED: CLONIDINE HCL 0.2 MG TAB PO ONE (17:45)
[2018-04-14] MEDS ORDERED: MINOXIDIL 2.5 MG TAB PO ONE (17:45)
[2018-04-14] MEDS ORDERED: LABETALOL HCL 5 MG/ML 20ML VIAL IV PRN (20:00)
[2018-04-14] MEDS: MINOXIDIL 2.5 MG TAB PO SCH (21:38)
[2018-04-14] MEDS: OXAZEPAM 10 MG CAP PO PRN (22:49)
[2018-04-15] MEDS: ISOSORBIDE DINITRATE 20 MG TAB PO SCH ×3 (07:00→16:00)
[2018-04-15] MEDS: INSULIN REGULAR, HUMAN 100 UNIT/1 ML 3ML VIAL SQ SCH ×3 (07:30→16:10)
[2018-04-15 08:04] VITALS: BP 175/82
[2018-04-15] MEDS: PANTOPRAZOLE 40 MG 10ML VIAL IV SCH (08:27)
[2018-04-15] MEDS: DOCUSATE SODIUM 100 MG CAP PO SCH ×2 (08:27→16:11)
[2018-04-15] MEDS: ASPIRIN 325 MG TAB EC PO SCH (08:27)
[2018-04-15] MEDS: MINOXIDIL 2.5 MG TAB PO SCH ×2 (08:27→16:11)
[2018-04-15] MEDS: AMMONIUM LACTATE 12% LOTION 225GM BTL TOP SCH ×2 (08:27→16:11)
[2018-04-15] MEDS: SERTRALINE HCL 50 MG TAB PO SCH (08:27)
[2018-04-15] MEDS: SUCRALFATE 1 GM TAB PO SCH ×3 (08:27→16:10)
[2018-04-15] MEDS ORDERED: MINOXIDIL 2.5 MG TAB PO SCH (09:00)
[2018-04-15] MEDS ORDERED: HYDRALAZINE HC100 MG PO (09:14)
[2018-04-15] MEDS ORDERED: CATAPRES-TTS 21 EACH TOP (09:14)
[2018-04-15] MEDS ORDERED: ISOSORBIDE DINI20 MG PO (09:14)
[2018-04-15] MEDS ORDERED: MINOXIDIL2.5 MG PO (09:14)
[2018-04-15 09:27] VITALS: BP 175/82
[2018-04-15 12:00] VITALS: BP 108/60
[2018-04-15] MEDS ORDERED: HYDRALAZINE HCL 100 MG TABLET PO SCH (12:00)
[2018-04-15 16:03] VITALS: BP 129/68
--- NOTE | 2018-04-16 06:24 | Progress Note ---
DATE: April 13, 2018 TIME: 7 a.m. OVERNIGHT: No events. REVIEW OF SYSTEMS: Denies any chest pain. PHYSICAL EXAMINATION VITAL SIGNS: Reviewed. GENERAL: A tired-appearing man resting in bed. HEENT: Anicteric. He has a dressing on the scalp. CARDIOVASCULAR: Normal S1 and S2. LUNGS: Moderate breath sounds. ABDOMEN: Soft and nontender. EXTREMITIES: Bilateral AKA. MUSCULOSKELETAL: Buttock dressing. SKIN: Dry. PSYCHIATRIC: Flat affect. LABS: Reviewed. MEDICATIONS: Reviewed. ASSESSMENT: A 42-year-old man with: 1. Extended spectrum beta-lactamase Proteus mirabilis and enterococcus infection of the wounds. 2. Bilateral ischial ulcers: Status post debridement. 3. End-stage renal disease, on hemodialysis. 4. Pericardial effusion, minimal. 5. Pleural effusion. 6. Scalp wound. 7. Dyspnea. PLAN 1. Continue local wound care. 2. Received antibiotics and antifungals. 3. Continue pain control. 4. Discharge planning. Job#: [id number] ZBIGNIEW
--- NOTE | 2018-04-16 06:35 | Progress Note ---
DATE: April 14, 2018 TIME: 7:15 a.m. OVERNIGHT: No events. REVIEW OF SYSTEMS: Denies any dizziness. PHYSICAL EXAMINATION VITAL SIGNS: Reviewed. GENERAL: A tired-appearing man resting in bed. HEENT: Anicteric. Dressing on scalp. CARDIOVASCULAR: Normal S1 and S2. LUNGS: Moderate breath sounds. ABDOMEN: Soft and nontender. EXTREMITIES: Bilateral AKA. : He has an ulcer on the glans penis. SKIN: Dry. PSYCHIATRIC: Flat affect. MUSCULOSKELETAL: Buttock dressing in place. LABS: Reviewed. MEDICATIONS: Reviewed. ASSESSMENT: A 42-year-old man with: 1. Extended spectrum beta-lactamase Proteus mirabilis and enterococcus infection of the wounds. 2. Bilateral ischial ulcers: Status post debridement. 3. End-stage renal disease, on hemodialysis. 4. Pericardial effusion, minimal. 5. Pleural effusion. 6. Ambulatory dysfunction. 7. Scalp wound. 8. Dizziness and nausea. PLAN 1. Continue local wound care. 2. Antibiotics and antifungals, received. 3. Pain control. 4. Discharge planning. Has minimal resources. Will transition home with family support. Job#: [id number] [place]
--- NOTE | 2018-04-16 06:40 | Discharge Summary ---
PRINCIPAL DIAGNOSES 1. Extended spectrum beta-lactamase Proteus mirabilis and enterococcus infection of the wounds. 2. Bilateral ischial ulcer, status post debridement. 3. Pericardial effusion, minimal. 4. Pleural effusion. 5. Ambulatory dysfunction. 6. Scalp wounds. 7. Dizziness and nausea. SECONDARY DIAGNOSIS: End-stage renal disease, on hemodialysis. CHIEF COMPLAINT: Shortness of breath and chest pain. HISTORY OF PRESENT ILLNESS: A 42-year-old man with shortness of breath and chest pain. Refer to the H and P for further details. HOSPITAL COURSE: The patient was found to have a scalp wound. Also, had an ulcer on the glans penis. Also, had ischial ulcers. He underwent debridement to bilateral ischial ulcers. He was found to have Proteus mirabilis and enterococcus infection of the wound. Received local wound care, antibiotics and antifungal. The patient also had pleural effusion. He had minimal pericardial effusion and received IV . The patient did well. Pain was controlled. Had limited resources. Therefore, he was transitioned home with support from the family. DISCHARGE MEDICATIONS: Per electronic medical record. FOLLOWUP: Primary care doctor in 1 week. He needs wound care at home. Family to provide. CONDITION ON DISCHARGE: Fair. LIAM ARAUJO MD Job#: [id number] [place]
[2018-04-16] MEDS ORDERED: NIFEDIPINE CR 30 MG TAB PO SCH (09:00)
== END 2018-04-15 18:06 | disposition home or self-care (01) | DRG 264 ==
LOC: ER 12:48 → ERHOLD 19:22 → IMCU 20:54 → MED/SURG2 04-04 16:27
PROVIDERS: ADMIT Internal Medicine; ATTEND Internal Medicine
PROC: 5A1D70Z Performance of Urinary Filtration, Intermittent, Less than 6 Hours Per Day (ICD-10-PCS; principal; 2018-04-02)
PROC: 0QB30ZZ Excision of Left Pelvic Bone, Open Approach (ICD-10-PCS; 2018-04-05)
PROC: 0JB70ZZ Excision of Back Subcutaneous Tissue and Fascia, Open Approach (ICD-10-PCS; 2018-04-05)
DX: I13.2 Hypertensive heart and chronic kidney disease with heart failure and with stage 5 chronic kidney disease, or end stage renal disease (principal); L89.324 Pressure ulcer of left buttock, stage 4; L89.313 Pressure ulcer of right buttock, stage 3; J96.90 Respiratory failure, unspecified, unspecified whether with hypoxia or hypercapnia; N18.6 End stage renal disease; I50.23 Acute on chronic systolic (congestive) heart failure; J90 Pleural effusion, not elsewhere classified; E87.1 Hypo-osmolality and hyponatremia; I31.3 Pericardial effusion (noninflammatory); I12.0 Hypertensive chronic kidney disease with stage 5 chronic kidney disease or end stage renal disease; D63.8 Anemia in other chronic diseases classified elsewhere; E11.22 Type 2 diabetes mellitus with diabetic chronic kidney disease; Z99.2 Dependence on renal dialysis; Z89.612 Acquired absence of left leg above knee; Z89.611 Acquired absence of right leg above knee; K74.60 Unspecified cirrhosis of liver; N48.29 Other inflammatory disorders of penis; B96.4 Proteus (mirabilis) (morganii) as the cause of diseases classified elsewhere; Z16.12 Extended spectrum beta lactamase (ESBL) resistance; B95.2 Enterococcus as the cause of diseases classified elsewhere; Z83.3 Family history of diabetes mellitus; Z82.49 Family history of ischemic heart disease and other diseases of the circulatory system; S00.00XD Unspecified superficial injury of scalp, subsequent encounter
CPT/HCPCS: 36415; 71045; 74176; 80048; 80053; 80061; 82150; 82550; 82553; 82948; 83036; 83605; 83690; 83735; 83880; 84132; 84165; 84295; 84484; 85025; 85610; 85730; 86704; 86706; 87040; 87071; 87075; 87186; 87205; 87340; 87350; 90962; 93005; 93306; 97139; 99284; J0360; J0692; J1200; J1450; J1644; J2001; J2150; J2185; J2250; J2270; J2550; J7030; J7040; J7050; Q4081

== ENCOUNTER 2018-05-23 18:59 | Emergency (ER) | payer SELFPAY ==
[~2018-05-23] VITALS: Ht 243.8 cm; Wt 49.4 kg
[~2018-05-23 18:59] MED LIST: CARAFATE1 GM PO; CATAPRES-TTS 21 EACH TOP; CATAPRES0.2 MG PO; CLINDAMYCIN HC150 MG PO; COLACE100 M1 PO; Calcium Carbonate 500MG Chew PO; HYDRALAZINE HC100 MG PO; ISOSORBIDE DINI20 MG PO; LEVAQUIN500 MG PO; MINOXIDIL2.5 MG PO; Meclizine Hcl PO; PANTOPRAZOLE SO40 MG PO; TYLENOL # 31 EA PO; ZOLOFT50 MG PO
[2018-05-23] MEDS ORDERED: MORPHINE SULFATE 2 MG/ML SYR IV STA (20:04)
[2018-05-23] MEDS ORDERED: PANTOPRAZOLE 40 MG 10ML VIAL IV STA (20:04)
[2018-05-23] MEDS ORDERED: ONDANSETRON HCL INJ 2 MG/ML VIAL IV STA ×2 (20:04→23:58)
[2018-05-23] MEDS ORDERED: HYDRALAZINE HCL 20 MG/ML VIAL IV STA (20:12)
[2018-05-23 20:18] LABS: BASOPHILS # (AUTO) 0.1 (0.0-0.1); BASOPHILS % 1.4 % (0.0-1.0); EOSINOPHILS # (AUTO) 0.4 (0.0-0.4); EOSINOPHILS % 6.5 % (0.0-6.0); HEMATOCRIT 31.8 % (38.2-49.6); HEMOGLOBIN 9.9 g/dL (14.0-18.0); LYMPHOCYTES # (AUTO) 0.9 (1.0-3.2); LYMPHOCYTES % 16.9 % (18.0-39.1); MEAN CORPUSCULAR HEMOGLOBIN 28.7 pg (28-32); MEAN CORPUSCULAR HGB CONC 31.1 g/dL (31-35); MEAN CORPUSCULAR VOLUME 92.2 fL (81-99); MONOCYTES # (AUTO) 0.5 (0.2-0.8); MONOCYTES % 9.7 % (4.4-11.3); NEUTROPHILS # (AUTO) 3.6 (2.1-6.9); NEUTROPHILS % 65.3 % (38.7-80.0); PLATELET COUNT 262 x10e3/uL (140-360); RED BLOOD COUNT 3.45 x10e6/uL (4.3-5.7); RED CELL DISTRIBUTION WIDTH 17.6 % (11.7-14.4)
[2018-05-23 20:23] LABS: INR 1.52; PARTIAL THROMBOPLASTIN TIME 23.6 seconds (23.8-35.5); PROTHROMBIN TIME 17.2 seconds (11.9-14.5)
[2018-05-23 20:33] LABS: ALBUMIN 2.7 g/dL (3.5-5.0); ALBUMIN/GLOBULIN RATIO 0.5 (0.8-2.0); ANION GAP 15.6 mmol/L (8-16); CALCIUM 8.9 mg/dL (8.4-10.2); CREATININE, SERUM 3.97 mg/dL (0.72-1.25); MAGNESIUM 2.1 MG/DL (1.3-2.1)
[2018-05-23] MEDS ORDERED: DIATRIZOATE MEGL/DIATRIZOA SOD 30 ML BTL PO ONE (20:37)
[2018-05-23 20:39] LABS: CREATINE KINASE MB 5.9 ng/mL (0-5.0)
[2018-05-23] MEDS ORDERED: RENVELA0.8 GM PO (20:47)
[2018-05-23] MEDS ORDERED: LISINOPRIL10 MG PO (20:47)
[2018-05-23] MEDS ORDERED: OMEPRAZOLE40 MG PO (20:47)
[2018-05-23] MEDS ORDERED: NIFEDIPINE ER30 M1 PO (20:47)
[2018-05-23 20:53] LABS: POTASSIUM 5.6 mmol/L (3.5-5.1)
[2018-05-23] MEDS ORDERED: NITROGLYCERIN 2% OINT 1 GM PKT TOP ONE (21:00)
--- NOTE | 2018-05-23 21:20 | Diagnostic Imaging Report ---
CHEST SINGLE (PORTABLE), 05/23/2018 8:04 PM Technique: CHEST SINGLE (PORTABLE) Comparison: 5.13.18 Clinical history: \S\esrd with abd pain Findings: See Impression Impression: 1. Lines/Tubes: Stable right hemodialysis catheter over the right atrium. 2. Stable enlarged cardiac silhouette. 3. Diffuse opacities, favor edema with bibasilar atelectasis and small effusions. Signed by: Dr Cristina Tavarez MD on 05/23/2018 9:17 PM
[2018-05-23] MEDS ORDERED: SODIUM CHLORIDE 0.9% 50ML 50 ML ONE (21:23)
[2018-05-23] MEDS ORDERED: IOPAMIDOL 370 MG/ML 200 ML INFUS..BTL INJ ONE (21:23)
[2018-05-23] MEDS ORDERED: HYDROMORPHONE 1MG/1ML INJ IV STA (23:58)
--- NOTE | 2018-05-24 00:16 | Diagnostic Imaging Report ---
EXAM: CT ABDOMEN/PELVIS W DATE: 05/23/2018 8:04 PM INDICATION: \S\ESRD, ABD PAIN/VOMITING H/O BOWEL OBST \S\[id number] \S\[id number] COMPARISON: 04/01/2018 TECHNIQUE: The abdomen and pelvis were scanned using a multidetector helical scanner. Coronal and sagittal reformations were obtained. Routine protocol performed. IV Contrast: 100 ml Isovue 300/370 FINDINGS: LOWER THORAX: Stable cardiomegaly with moderate pericardial effusion. Stable small complex/chronic bilateral effusions or pleural thickening and associated atelectasis, rounded atelectasis in the right lower lobe. Dialysis catheter tip is in the right atrium. LIVER: Low-attenuation of the liver which may be due to phase of contrast and/or underlying hepatic steatosis. GALLBLADDER: Surgically absent. Stable extrahepatic biliary ductal dilation. SPLEEN: Unremarkable PANCREAS: Unremarkable ADRENALS: No nodules KIDNEYS: Atrophic, poorly enhancing in keeping with renal failure. GI TRACT: No evidence of bowel obstruction. There is moderate stool burden. Appendix is again not identified. VESSELS: Severe diffuse atherosclerotic calcifications. PERITONEUM/RETROPERITONEUM: Mild ascites in the abdomen and pelvis, similar to prior. Unchanged loculated left perihepatic ascites. Stable 3 cm calcification in the right lower quadrant, likely from sequelae of prior fat necrosis. LYMPH NODES: Poorly assessed. No definite adenopathy. REPRODUCTIVE ORGANS/BLADDER: Mildly thick-walled bladder, unchanged. SOFT TISSUES: Anasarca BONES: No suspicious bone lesions. IMPRESSION: 1. No evidence of bowel obstruction or other acute abnormality. 2. Cardiomegaly with pericardial effusion, small bilateral pleural effusions, mild ascites and anasarca. Signed by: Dr Cristina Tavarez MD on 05/24/2018 12:12 AM
[2018-05-24] MEDS ORDERED: NIFEDIPINE 10 MG CAP PO STA (00:25)
[2018-05-24] MEDS ORDERED: SOD POLYSTYRENE SULFONATE SUSP 15 GM/60 ML BTL PO ONE (01:45)
--- OUTSIDE RECORDS SUMMARY | 2018-09-01 14:24 | XMS REPORT | Continuity of Care Document ---
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 No 04/01/18 9:52pm If yes, is advance directive on file with [facility]? No 04/01/18 9:52pm If not on file with [facility] will patient provide a copy? No 04/01/18 9:52pm Do you have a Directive to Physician? No 04/01/18 1:29pm Do you have a Medical Power of Completion Manager? No 04/01/18 1:29pm Do you have an out of hospital Do Not Resuscitate Order? No 04/01/18 1:29pm Do you have any special needs we should be aware of? No 04/01/18 1:29pm Do you have a support person here with you today? No 04/01/18 1:29pm Did patient receive Notice of Privacy Practices? Yes 04/01/18 1:29pm Did patient receive patient rights and responsibilities? Yes 04/01/18 1:29pm Problems Medical Problem Onset Date Status Chest pain Unknown ESRD on dialysis Unknown Gastritis Unknown Hyperkalemia Unknown Shortness of breath Unknown Volume overload Unknown Medications Current Home Medications Medication Dose Units Route Directions Days Qty Instructions Start Date Acetaminophen/Codeine Phosphate (Tylenol # 3*) 1 Ea Tab 1 Ea Oral Every 4 Hours as needed for Pain 15 Days 04/14/18 Calcium Carbonate 500MG Chew 500 Mg Chew 500 Mg Oral Every 8 Hours 30 Days 04/14/18 Clindamycin Hcl 150 Mg Capsule 300 Mg Oral Every 8 Hours 14 Days Clonidine (Catapres-Tts 2) 1 Each Patch.tdwk 1 Ea Topically Every 7 Days 30 Days 04/15/18 Clonidine Hcl (Catapres) 0.2 Mg Tablet 0.3 Mg Oral Every 8 Hours 30 Days 04/14/18 Docusate Sodium (Colace) 100 Mg Capsule 100 Mg Oral Twice A Day 30 Days 04/14/18 Hydralazine Hcl 100 Mg Tablet 100 Mg Oral Three Times A Day 30 Days 04/14/18 Hydralazine Hcl 100 Mg Tablet 100 Mg Oral Every 6 Hours 30 Days Isosorbide Dinitrate 20 Mg Tablet 10 Mg Oral Three Times A Day 30 Days 04/15/18 Levofloxacin (Levaquin) 500 Mg Tablet 500 Mg Oral Daily 14 Days Meclizine Hcl 12.5 Mg Tab 12.5 Mg Oral Daily as needed for Dizziness 30 Days 04/14/18 Minoxidil 2.5 Mg Tablet 5 Mg Oral Twice A Day 30 Days 04/15/18 Pantoprazole Sodium (Protonix) 40 Mg Tablet.dr 40 Mg Oral Daily 30 Days 04/14/18 Sertraline Hcl (Zoloft) 50 Mg Tablet 25 Mg Oral Daily 30 Days 04/14 Sucralfate (Carafate) 1 Gm Tablet 1 Gm Oral Before Meals And At Bedtime 30 Days 04/14/18 Social History Smoking Status Start Date Stop Date Never Smoker Hospital Discharge Instructions No hospital discharge instruction information available. Plan of Care Discharge Date 04/15/18 6:06pm Disposition HOME, SELF-CARE Instructions/Education Provided Hemodialysis Wound Care (General) Prescriptions See Medication Section Referrals pcp (Internal Medicine) Order Date: 5-7 Days Entered Date: 04/14/2018 6:31am DORIAN SALDANA MD (Surgery) Order Date: 7-10 Days Entered Date: 04/14/2018 6:31am Address: [address] [place] [id number] Functional Status Query Response Date Recorded FUNCTIONAL STATUS . April 13, 2018 12:47pm Toileting Ability Maximum Assistance April 15, 2018 9:00am Allergies, Adverse Reactions, Alerts No known allergies. Immunizations No immunization information available. Vital Signs Acute Vital Signs Vital Response Date/Time Temperature (Fahrenheit) 97.0 degrees F (97.6 - 99.5) 04/15/2018 4:03pm Pulse Pulse Rate (adult) 56 bpm (60 - 90) 04/15/2018 4:03pm Respiratory Rate 18 bpm (12 - 24) 04/15/2018 4:03pm Blood Pressure 129/68 mm Hg 04/15/2018 4:03pm Height 4 ft 0 in 04/01/2018 9:52pm Weight 109.06 lb 04/10/2018 7:57am Body Mass Index 33.3 kg/m^2 04/10/2018 7:57am Results Laboratory Results Test Name Result Units Flags Reference Collection Date/Time Result Date/ Time Comments Hepatitis Be Antibody Negative Negative 10/28/2017 6:50pm 11/02/2017 3:56pm Performed at: - [facility] [address] [id number] Invoice Control Clerk: Alphonso Joseph MD, Phone: [phone] Hepatitis B Core IgM Antibody Negative Negative 10/28/2017 6:50pm 11/2016 9:56pm Performed at: - [facility] [address] [id number] Invoice Control Clerk: Doug Foreman MD, Phone: [phone] White Blood Count 6.75 x10e3/uL 4.8-10.8 04/14/2018 5:44am 04/14/2018 6 :25am Red Blood Count 3.55 x10e6/uL L 4.3-5.7 04/14/2018 5:44am 04/14/2018 6: 25am Hemoglobin 10.6 g/dL L 14.0-18.0 04/14/2018 5:44am 04/14/2018 6:25am Hematocrit 34.2 % L 38.2-49.6 04/14/2018 5:44am 04/14/2018 6:25am Mean Corpuscular Volume 96.3 fL 81-99 04/14/2018 5:44am 04/14/2018 6: 25am Mean Corpuscular Hemoglobin 29.9 pg 28-32 04/14/2018 5:44am 04/14/2018 6:25am Mean Corpuscular Hemoglobin Concent 31.0 g/dL 31-35 04/14/2018 5:44am 04/14/2018 6:25am Red Cell Distribution Width 16.4 % H 11.7-14.4 04/14/2018 5:44am 2017 6:25am Platelet Count 331 x10e3/uL 140-360 04/14/2018 5:44am 04/14/2018 6: 25am Neutrophils (%) (Auto) 64.1 % 38.7-80.0 04/14/2018 5:44am 04/14/2018 6: 25am Lymphocytes (%) (Auto) 11.3 % L 18.0-39.1 04/14/2018 5:44am 04/14/2018 6 :25am Monocytes (%) (Auto) 14.8 % H 4.4-11.3 04/14/2018 5:44am 04/14/2018 6: 25am Eosinophils (%) (Auto) 7.7 % H 0.0-6.0 04/14/2018 5:44am 04/14/2018 6: 25am Basophils (%) (Auto) 0.9 % 0.0-1.0 04/14/2018 5:44am 04/14/2018 6:25am IM GRANULOCYTES % 1.2 % H 0.0-1.0 04/14/2018 5:44am 04/14/2018 6:25am Neutrophils # (Auto) 4.3 2.1-6.9 04/14/2018 5:44am 04/14/2018 6:25am Lymphocytes # (Auto) 0.8 L 1.0-3.2 04/14/2018 5:44am 04/14/2018 6: 25am Monocytes # (Auto) 1.0 H 0.2-0.8 04/14/2018 5:44am 04/14/2018 6:25am Eosinophils # (Auto) 0.5 H 0.0-0.4 04/14/2018 5:44am 04/14/2018 6: 25am Basophils # (Auto) 0.1 0.0-0.1 04/14/2018 5:44am 04/14/2018 6:25am Absolute Immature Granulocyte (auto 0.08 x10e3/uL 0-0.1 04/14/2018 5: 44am 04/14/2018 6:25am Differential Total Cells Counted 100 04/12/2018 7:18am 04/12/2018 8 :08am Neutrophils % (Manual) 78 % H 40-74 04/12/2018 7:18am 04/12/2018 8:08am Lymphocytes % (Manual) 9 % L 19-48 04/12/2018 7:18am 04/12/2018 8:08am Monocytes % (Manual) 8 % 3.4-9.0 04/12/2018 7:18am 04/12/2018 8:08am Eosinophils % (Manual) 5 % 0-7 04/12/2018 7:18am 04/12/2018 8:08am Basophils % (Manual) 1 % 0-1.5 04/08/2018 7:15am 04/08/2018 10:36am Platelet Estimate ADEQUATE 04/12/2018 7:18am 04/12/2018 8:08am Platelet Morphology Comment NORMAL 04/12/2018 7:18am 04/12/2018 8: 08am Hypochromasia SLIGHT 04/08/2018 7:15am 04/08/2018 10:36am Poikilocytosis SLIGHT 04/08/2018 7:15am 04/08/2018 10:36am Anisocytosis SLIGHT 04/08/2018 7:15am 04/08/2018 10:36am Macrocytosis SLIGHT 04/08/2018 7:15am 04/08/2018 10:36am Red Cell Morphology Comment NORMAL 04/12/2018 7:18am 04/12/2018 8: 08am Prothrombin Time 15.3 seconds H 11.9-14.5 04/01/2018 1:07pm 04/01/2018 1 :28pm Prothromb Time International Ratio 1.31 04/01/2018 1:07pm 2017 1:28pm Oral Anticoagulant Therapy INR Values: 1. Low Intensity Therapy 1.5 - 2.0 2. Moderate Intensity Therapy 2.0 - 3.0 3. High Intensity Therapy(1) 2.5 - 3.5 4. High Intensity Therapy(2) 3.0 - 4.0 5. Panic Value INR > 5.0 Activated Partial Thromboplast Time 33.9 seconds 23.8-35.5 04/01/2018 1: 07pm 04/01/2018 1:34pm Sodium Level 130 mmol/L L 136-145 04/14/2018 5:44am 04/14/2018 6:50am Potassium Level 4.6 mmol/L 3.5-5.1 04/14/2018 5:44am 04/14/2018 6:50am Chloride Level 91 mmol/L L 98-107 04/14/2018 5:44am 04/14/2018 6:50am Carbon Dioxide Level 28 mmol/L 22-29 04/14/2018 5:44am 04/14/2018 6: 50am Anion Gap 15.6 mmol/L 8-16 04/14/2018 5:44am 04/14/2018 6:50am Blood Urea Nitrogen 21 mg/dL 7-26 04/14/2018 5:44am 04/14/2018 6:50am Creatinine 3.95 mg/dL H 0.72-1.25 04/14/2018 5:44am 04/14/2018 6:50am BUN/Creatinine Ratio 5 L 6-25 04/14/2018 5:44am 04/14/2018 6:50am Estimat Glomerular Filtration Rate 17 ML/MIN L 60- 04/14/2018 5:44am 6:50am Ranges were taken from the National Kidney Disease Education Program and the National Kid[employer] Foundation literature. Reference ranges: 60 or greater: Normal 16-59 (for 3 consecutive months): Chronic kidney disease 15 or less: Kidney failure Glucose Level 107 mg/dL 74-118 04/14/2018 5:44am 04/14/2018 6:50am Calcium Level 9.0 mg/dL 8.4-10.2 04/14/2018 5:44am 04/14/2018 6:50am Bedside Glucose 87 mg/dL 70-120 04/15/2018 11:58am 04/15/2018 12:07pm Meter ID: [id number] Hemoglobin A1c Percent 4.5 % 4.0-7.0 04/02/2018 6:00am 04/02/2018 7: 51am Lactic Acid Level 10.5 MG/DL 4.5-19.8 04/01/2018 1:07pm 04/01/2018 1: 36pm Magnesium Level 2.1 MG/DL 1.3-2.1 04/01/2018 1:07pm 04/01/2018 1:37pm Total Bilirubin 0.9 mg/dL 0.2-1.2 04/01/2018 1:07pm 04/01/2018 1:37pm Aspartate Amino Transf (AST/SGOT) 20 IU/L 5-34 04/01/2018 1:07pm 2017 1:37pm Alanine Aminotransferase (ALT/SGPT) 13 IU/L 0-55 04/01/2018 1:07pm 01/2018 1:37pm Total Protein 8.1 g/dL 6.5-8.1 04/01/2018 1:07pm 04/01/2018 1:37pm Albumin 2.6 g/dL L 3.5-5.0 04/01/2018 1:07pm 04/01/2018 1:37pm Globulin 5.5 g/dL H 2.3-3.5 04/01/2018 1:07pm 04/01/2018 1:37pm Albumin/Globulin Ratio 0.5 L 0.8-2.0 04/01/2018 1:07pm 04/01/2018 1: 37pm Alkaline Phosphatase 390 IU/L H 40-150 04/01/2018 1:07pm 04/01/2018 1: 37pm Triglycerides Level 54 MG/DL 0-149 04/02/2018 5:30am 04/02/2018 6:15am Cholesterol Level 101 MD/DL 0-199 04/02/2018 5:30am 04/02/2018 6:15am Less than 200 mg/dL Low Risk 201 - 239 mg/dL Borderline Risk 240 mg/dl and greater High Risk LDL Cholesterol 48 MG/DL L 60-130 04/02/2018 5:30am 04/02/2018 6:15am HDL Cholesterol 42 MG/DL 40-60 04/02/2018 5:30am 04/02/2018 6:15am Cholesterol/HDL Ratio 2.4 L 3.9-4.7 04/02/2018 5:30am 04/02/2018 6: 15am B-Type Natriuretic Peptide 67757.7 pg/mL H 0-100 04/02/2018 6:00am 04/02 7:29am Creatine Kinase 34 IU/L 30-200 04/02/2018 6:00am 04/02/2018 6:47am Creatine Kinase MB 6.40 ng/mL H 0-5.0 04/02/2018 6:00am 04/02/2018 6: 51am Troponin I 0.057 ng/mL 0-0.300 04/02/2018 6:00am 04/02/2018 6:51am Amylase Level 36 U/L 25-125 04/01/2018 1:07pm 04/01/2018 1:37pm Lipase 11 U/L 8-78 04/01/2018 1:07pm 04/01/2018 1:37pm Hepatitis B Surface Antibody, Quant <3.1 mIU/mL L Immunity>9.9 2017 4:40pm 04/03/2018 7:17am Status of Immunity Anti- HBs Level Inconsistent with Immunity 0.0 - 9.9 Consistent with Immunity >9.9 Hepatitis Be Antigen Negative Negative 04/02/2018 4:40pm 04/03/2018 7 :17am Albumin (PEP) 3.3 g/dL 2.9-4.4 04/02/2018 11:10am 04/06/2018 5:39am Gqmcd-7-Paanpnvko 0.3 g/dL 0.0-0.4 04/02/2018 11:10am 04/06/2018 5: 39am Vcqtf-8-Pgzjameau 0.7 g/dL 0.4-1.0 04/02/2018 11:10am 04/06/2018 5: 39am Beta Gamma Globulin 0.8 g/dL 0.7-1.3 04/02/2018 11:10am 04/06/2018 5: 39am Gamma Globulins 2.7 g/dL H 0.4-1.8 04/02/2018 11:10am 04/06/2018 5:39am Total Protein (PEP) 7.7 g/dL 6.0-8.5 04/02/2018 11:10am 04/06/2018 5: 39am Globulin 4.4 g/dL H 2.2-3.9 04/02/2018 11:10am 04/06/2018 5:39am [place] Light Chain Analysis 532.3 mg/L H 3.3-19.4 04/02/2018 11:10am 06/2018 5:39am Lambda Light Chain Analysis 399.4 mg/L H 5.7-26.3 04/02/2018 11:10am 06/2018 5:39am Totl [place]/Lambda Light Chain Ratio 1.33 0.26-1.65 04/02/2018 11:10am 04/06/2018 5:40am Performed at: [address] [id number] Invoice Control Clerk: Doug Foreman MD, Phone: [phone] Performed at: [address] [id number] Invoice Control Clerk: ALEJANDRA Muñiz MD, Phone: [phone] Protein Electrophoresis M-Bj Not Observed g/dL Not Observed 2017 11:10am 04/06/2018 5:39am Albumin/Globulin Ratio 0.8 0.7-1.7 04/02/2018 11:10am 04/06/2018 5: 39am Protein Electrophoresis Note Comment . 04/02/2018 11:10am 04/06/2018 5:40am Protein electrophoresis scan will follow via computer, mail, or restaurant expeditor delivery. Hepatitis B Core Total Antibody Negative Negative 04/12/2018 7:18am 04/13/2018 7:36am Performed at: [address] [id number] Invoice Control Clerk: Doug Foreman MD, Phone: [phone] Hepatitis B Surface Antigen Negative Negative 04/12/2018 9:36am 04/13 7:36am Performed at: [address] [id number] Invoice Control Clerk: Doug Foreman MD, Phone: [phone] Microbiology Results Procedure Source Organism/Result Collection Date/Time Result Date/Time Result Status Blood Culture Blood NO GROWTH AFTER 5 DAYS, FINAL REPORT 04/02/2018 7:42am 04/07/2018 7:45am Final Wound Culture Penis ENTEROCOCCUS FAECALIS 04/04/2018 10:50am 04/07/2018 11 :21am Final PROTEUS MIRABILIS-ESBL 04/04/2018 10:50am 04/07/2018 11:21am Final Wound Culture Sacral ENTEROCOCCUS FAECALIS 04/05/2018 4:20pm 04/09/2018 1: 29pm Final Procedures Procedure Status Date Provider(s) Incision and drainage Completed 04/05/[address] of abdomen and pelvis without contrast Active 10/28/[address] of abdomen and pelvis without contrast Active 11/16/[address] of abdomen and pelvis without contrast Active 12/10/[address] of abdomen and pelvis without contrast Active 04/01/18 HERBER BAXTER MD Encounters Encounter Location Arrival/Admit Date Discharge/Depart Date Attending Provider [facility] 04/01/18 7:22pm 04/15/18 6:06pm LIAM ARAUJO MD Departed Emergency Room [facility] Patients [facility] 12/10/17 10:11pm 12/11 1:13am OMAR KAUR MD Departed Emergency Room [facility]'s Patients [facility] 11/16/17 7:16am 1:20pm CLAYTON HEIN MD Discharged [facility]patient (obs[facility] 10/28/17 3:22am 5:41pm MANUEL HEART MD
== END 2018-05-24 02:27 | disposition home or self-care (01) ==
LOC: ER 18:59
DX: R10.84 Generalized abdominal pain (principal); I12.0 Hypertensive chronic kidney disease with stage 5 chronic kidney disease or end stage renal disease; N18.6 End stage renal disease; Z99.2 Dependence on renal dialysis; Z89.512 Acquired absence of left leg below knee; Z89.511 Acquired absence of right leg below knee
CPT/HCPCS: 36415; 71045; 74177; 80053; 82150; 82550; 82553; 83690; 83735; 84484; 85025; 85610; 85730; 93005; 99284; J1170; J2270; J2405 ×2; Q9967

== ENCOUNTER 2018-06-15 18:10 | Emergency (ER) | payer MEDICAID ==
[~2018-06-15] VITALS: Ht 243.8 cm; Wt 53.5 kg
[~2018-06-15 18:10] MED LIST changes: +LISINOPRIL10 MG PO; +NIFEDIPINE ER30 M1 PO; +OMEPRAZOLE40 MG PO; +RENVELA0.8 GM PO
[2018-06-15] MEDS ORDERED: SODIUM CHLORIDE 0.9% 1000ML 1,000 ML IV STA (18:33)
[2018-06-15] MEDS ORDERED: ONDANSETRON HCL INJ 2 MG/ML VIAL IV STA (18:33)
[2018-06-15] MEDS ORDERED: DIATRIZOATE MEGL/DIATRIZOA SOD 30 ML BTL PO ONE (19:38)
[2018-06-15 19:46] LABS: BASOPHILS % 0.7 % (0.0-1.0); EOSINOPHILS # (AUTO) 0.2 (0.0-0.4); EOSINOPHILS % 3.6 % (0.0-6.0); HEMATOCRIT 32.4 % (38.2-49.6); HEMOGLOBIN 10.2 g/dL (14.0-18.0); LYMPHOCYTES # (AUTO) 0.9 (1.0-3.2); LYMPHOCYTES % 20.2 % (18.0-39.1); MEAN CORPUSCULAR HEMOGLOBIN 28.1 pg (28-32); MEAN CORPUSCULAR HGB CONC 31.5 g/dL (31-35); MEAN CORPUSCULAR VOLUME 89.3 fL (81-99); MONOCYTES # (AUTO) 0.6 (0.2-0.8); MONOCYTES % 13.8 % (4.4-11.3); NEUTROPHILS # (AUTO) 2.6 (2.1-6.9); NEUTROPHILS % 60.5 % (38.7-80.0); PLATELET COUNT 224 x10e3/uL (140-360); RED BLOOD COUNT 3.63 x10e6/uL (4.3-5.7); RED CELL DISTRIBUTION WIDTH 17.4 % (11.7-14.4)
--- NOTE | 2018-06-15 20:09 | Diagnostic Imaging Report ---
Examination: CT head without contrast Clinical Indication: Head injury. Fall. Technique: Transaxial noncontrast images from the skull base through the vertex were obtained. Sagittal and coronal reformatted images were done. Comparison: None. Findings: Scalp: No abnormalities. Bones: Intact. No fractures. No blastic or lytic lesions. Brain sulci: Appropriate for patient's age. Ventricles: Normal in size and configuration. No hydrocephalus. . Extra-axial space: No abnormalities. Parenchyma: There are subtle confluent areas of low-attenuation within subcortical and periventricular white matter, nonspecific, but could represent microvascular ischemic disease. No masses, hemorrhage, or acute or chronic cortical based vascular insults. Suprasellar region: No abnormalities. Craniocervical junction: The foramen magnum is patent. No Chiari one malformation. Incidental findings: Atherosclerotic calcification of the cavernous and supraclinoid internal carotid, V4 segments of the bilateral vertebral and scalp branches of the external carotid arteries. Impression: 1. No acute intracranial finding. 2. Mild chronic microvascular ischemic change. Signed by: Dr. Skylar Cisneros M.D. on 06/15/2018 8:05 PM
--- NOTE | 2018-06-15 20:30 | Diagnostic Imaging Report ---
EXAM: CT Abdomen and Pelvis WITHOUT contrast INDICATION: \S\ORAL CONTRAST ONLY, ABD PAIN \S\[id number] \S\1932 \S\Y Fall, hit head today COMPARISON: CT 05/23/2018 TECHNIQUE: Abdomen and pelvis were scanned utilizing a multidetector helical scanner from the lung base to the pubic symphysis without administration of IV contrast. Coronal and sagittal reformations were obtained. Routine protocol was performed. IV CONTRAST: None ORAL CONTRAST: None. Patient refused oral contrast. COMPLICATIONS: None RADIATION DOSE: Total DLP: ... mGy*cm Estimated effective dose: (DLP x 0.015 x size factor) mSv CTDIvol has been reviewed. It is below the limits set by the Radiation Protocol Committee (RPC). FINDINGS: Absence of intravenous contrast decreases sensitivity for detection of focal lesions, lacerations, or vascular pathology. LINES and TUBES: Partially visualized central catheter in the right atrium. LOWER THORAX: No pericardial effusion. Persistent complex small bilateral pleural effusions. Persistent rounded atelectasis in the right lower lobe. Cardiomegaly. Diffuse coronary artery calcifications. HEPATOBILIARY: No focal hepatic lesions. No biliary ductal dilation. GALLBLADDER: No radio-opaque stones or sludge. No wall thickening. SPLEEN: No splenomegaly. PANCREAS: No focal masses or ductal dilatation. ADRENALS: No adrenal nodules KIDNEYS/URETERS: No hydronephrosis. No cystic or solid mass lesions. No stones. GI TRACT: No abnormal distention, wall thickening, or evidence of bowel obstruction. High attenuation within the gastric fundus and cecum. Appendix is normal. PELVIC ORGANS/BLADDER: Unremarkable. LYMPH NODES: No lymphadenopathy. VESSELS: Diffuse arteriosclerosis. Limited evaluation without contrast. PERITONEUM / RETROPERITONEUM: Decreased loculated left hepatic ascites. Otherwise, mild ascites grossly unchanged. No free air. BONES: Left decubitus ulcer with erosions of the left ischial tuberosity (series 2 image 102). Soft tissue prominence in the right gluteal soft tissues (series 2 image 24) with air previously seen on 10/28/2017. Soft tissue extends to the right initial tuberosity without definite erosion. SOFT TISSUES: Anasarca. IMPRESSION: 1. Limited evaluation without IV or oral contrast. 2. High attenuation within the gastric fundus and cecum which may be related to ingested contents or blood. If there is concern for GI bleed, consider tagged RBC study in the setting of low GFR. 3. Left decubitus ulcer with osteomyelitis of the left ischial tuberosity. 4. Right decubitus phlegmon/soft tissue which extends to the right ischial tuberosity without definite osseus erosion. 5. Persistent fluid overload with cardiomegaly, pericardial effusion, bilateral pleural effusions, mild ascites, and anasarca. Signed by: DR. Poncho Ruiz MD on 06/15/2018 8:27 PM
[2018-06-15 20:38] LABS: ALBUMIN 2.3 g/dL (3.5-5.0); ALBUMIN/GLOBULIN RATIO 0.5 (0.8-2.0); ANION GAP 14.4 mmol/L (8-16); CALCIUM 7.5 mg/dL (8.4-10.2); CREATININE, SERUM 3.43 mg/dL (0.72-1.25); POTASSIUM 3.4 mmol/L (3.5-5.1)
[2018-06-15] MEDS ORDERED: HYDRALAZINE HCL 20 MG/ML VIAL IV STA (21:13)
[2018-06-15 21:30] VITALS: BP 186/103
[2018-06-15] MEDS ORDERED: CLONIDINE HCL 0.2 MG TAB PO NR (21:30)
== END 2018-06-15 22:17 | disposition home or self-care (01) ==
LOC: ER 18:10
DX: R10.84 Generalized abdominal pain (principal); R11.2 Nausea with vomiting, unspecified; R19.7 Diarrhea, unspecified; I12.0 Hypertensive chronic kidney disease with stage 5 chronic kidney disease or end stage renal disease; E11.22 Type 2 diabetes mellitus with diabetic chronic kidney disease; N18.6 End stage renal disease; Z99.2 Dependence on renal dialysis; L89.223 Pressure ulcer of left hip, stage 3; L89.212 Pressure ulcer of right hip, stage 2; L89.151 Pressure ulcer of sacral region, stage 1; Z89.612 Acquired absence of left leg above knee; Z89.611 Acquired absence of right leg above knee
CPT/HCPCS: 36415; 70450; 74176; 80053; 83690; 85025; 93005; 99284